=== PATIENT | female | born 1955 | race Caucasian/White ===

== ENCOUNTER 2016-12-27 20:52 | Outpatient (CLI) | payer MEDICAID | END 2016-12-27 20:53 | disposition critical access hospital (66) | LOC: EMS 20:52 | PROVIDERS: ATTEND Surgery | DX: R07.9 Chest pain, unspecified (principal); R20.0 Anesthesia of skin; R51 Headache | CPT/HCPCS: A0425; A0429 ==

== ENCOUNTER 2016-12-27 21:10 | Emergency (ER) | payer MEDICAID ==
[2016-12-28] MEDS ORDERED: HYDROcod/ACET 5/325 Prepack 6 PO STA (01:57)
[2016-12-28] MEDS ORDERED: HYDROcod/ACET 5/325 Prepack 6 PO ONE (02:00)
== END 2016-12-28 02:33 | disposition home or self-care (01) ==
DX: R07.89 Other chest pain (principal); H92.01 Otalgia, right ear; I51.7 Cardiomegaly; I10 Essential (primary) hypertension; J45.909 Unspecified asthma, uncomplicated; J44.9 Chronic obstructive pulmonary disease, unspecified; Z86.73 Personal history of transient ischemic attack (TIA), and cerebral infarction without residual deficits; G62.9 Polyneuropathy, unspecified

== ENCOUNTER 2017-06-20 11:17 | Outpatient (CLI) | payer MEDICAID | END 2017-06-20 11:18 | disposition critical access hospital (66) | LOC: EMS 11:17 | PROVIDERS: ATTEND Surgery | DX: S11.93XA Puncture wound without foreign body of unspecified part of neck, initial encounter (principal); S11.91XA Laceration without foreign body of unspecified part of neck, initial encounter; W26.0XXA Contact with knife, initial encounter; Y92.039 Unspecified place in apartment as the place of occurrence of the external cause | CPT/HCPCS: A0425; A0427 ==

== ENCOUNTER 2017-06-20 11:35 | Observation (INO) | payer MEDICAID ==
[2017-06-20] MEDS ORDERED: ETOMIDATE 40 MG/20 ML VIAL IVP ONE (11:53)
[2017-06-20] MEDS ORDERED: SUCCINYLCHOLINE 200 MG/10 ML VIAL ONE (11:54)
[2017-06-20] MEDS ORDERED: PROPOFOL 200 MG/20 ML VIAL IVP ONE (11:54)
[2017-06-20] MEDS ORDERED: IOPAMIDOL-300 100 ML VIAL ONE (12:02)
[2017-06-20] MEDS ORDERED: IOPAMIDOL-300 100 ML VIAL IVP ONE (12:20)
--- NOTE | 2017-06-20 12:46 | XRAY Preliminary Report ---
Exam: XR CHEST 1 VIEW IMPRESSION: 1. Low lung volumes with basilar opacities that could reflect atelectasis or aspiration. 2. No evidence for pneumothorax. 3. Heart size and mediastinum appear normal. 4. Lucency seen at the right lateral neck not well-defined on plain radiograph. CT of the neck could be obtained for further evaluation. [facility] SITE ID: [id number]
--- NOTE | 2017-06-20 12:49 | XRAY Report ---
EXAM: CHEST RADIOGRAPHY EXAM DATE: 06/20/2017 12:19 PM. CLINICAL HISTORY: Need to include neck. COMPARISON: None. TECHNIQUE: 1 view. FINDINGS: Lungs/Pleura: Lung volumes are low. Low lung prominent opacities could reflect atelectasis or aspirat ion. No evidence for pneumothorax. Mediastinum: Heart size and mediastinum appear unremarkable. Other: Lucency seen at the right neck. IMPRESSION: 1. Low lung volumes with basilar opacities that could reflect atelectasis or aspiration. 2. No evidence for pneumothorax. 3. Heart size and mediastinum appear normal. 4. Lucency seen at the right lateral neck not well-defined on plain radiograph. CT of the neck could be obtained for further evaluation. [facility] Referring Provider Line: [phone] SITE ID: [id number]
[2017-06-20] MEDS ORDERED: BUPIVACAINE 0.5% PF 30 ML VIAL SUBQ STA (12:54)
[2017-06-20] MEDS ORDERED: BUPIVACAINE 0.5% PF 30 ML VIAL SUBQ SCH (13:00)
[2017-06-20 13:05] LABS: BASOPHILS # (AUTO) 0.1 10^3/uL (0.0-0.1); BASOPHILS % (AUTO) 0.7 %; EOSINOPHILS % (AUTO) 0.2 %; LYMPHOCYTES # (AUTO) 2.8 10^3/uL (1.5-3.5); LYMPHOCYTES % (AUTO) 22.1 %; MEAN CORPUSCULAR HGB CONC 33.1 g/dL (32.0-36.0); MEAN CORPUSCULAR VOLUME 87.6 fL (81.0-99.0); MEAN PLATELET VOLUME 7.4 fL (7.9-10.8); MONOCYTES % (AUTO) 7.7 %; NEUTROPHILS # (AUTO) 8.9 10^3/uL (1.5-6.6); NEUTROPHILS % (AUTO) 69.3 %; PLT - PLATELET COUNT 267 10^3/uL (130-450); RED BLOOD COUNT 5.51 10^6/uL (4.20-5.40); RED CELL DISTRIBUTION WIDTH 15.6 % (12.0-15.0); WHITE BLOOD COUNT 12.9 x10^3/uL (4.8-10.8)
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
[2017-06-20] MEDS ORDERED: TETANUS/DIPHTHERIA/PERTUSSIS 0.5 ML SYRINGE IM ONE (14:29)
[2017-06-20 14:32] LABS: BILIRUBIN,URINE NEGATIVE (NEGATIVE); CLARITY,URINE CLEAR (CLEAR); GLUCOSE, URINE (UA) NEGATIVE (NEGATIVE); KETONES,URINE (UA) TRACE mg/dL (NEGATIVE); LEUKOCYTE ESTERASE, URINE NEGATIVE (NEGATIVE); NITRITE,URINE NEGATIVE (NEGATIVE); OCCULT BLOOD,URINE NEGATIVE (NEGATIVE); PROTEIN,URINE NEGATIVE (NEGATIVE); UROBILINOGEN,URINE 0.2 (NORMAL) E.U./dL (NORMAL)
[2017-06-20 14:42] LABS: INR 1.1 (0.8-1.2); PT - PROTHROMBIN TIME 12.9 secs (9.9-12.6)
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
[2017-06-20 14:53] LABS: ALBUMIN/GLOBULIN RATIO 1.3 (1.0-2.2); ALKALINE PHOSPHATASE 67 IU/L (42-121); ALT ALANINE AMINOTRANSFERASE 15 IU/L (10-60); AST ASPARTATE AMINOTRANSFERASE 18 IU/L (10-42); BILIRUBIN,TOTAL 0.7 mg/dL (0.2-1.0); BUN - BLOOD UREA NITROGEN 9 mg/dL (6-20); CALCIUM 8.9 mg/dL (8.5-10.3); CARBON DIOXIDE - CO2 23 mmol/L (21-32); CHLORIDE 104 mmol/L (101-111); CREATININE 0.9 mg/dL (0.4-1.0); GFR - MDRD 63 (>89); GLUCOSE 101 mg/dL (70-100); LIPASE 30 U/L (22-51); SALICYLATE < 6.0 mg/dL; SODIUM 139 mmol/L (135-145); TOTAL PROTEIN 7.2 g/dL (6.7-8.2)
[2017-06-20 14:55] LABS: ACETAMINOPHEN < 10 ug/mL (10-30)
[2017-06-20] MEDS ORDERED: ONDANSETRON ODT 4 MG TABLET TL PRN (15:20)
[2017-06-20] MEDS ORDERED: SODIUM CHLORIDE FLUSH 0.9% 10 ML SYRINGE IVP PRN (15:20)
[2017-06-20] MEDS ORDERED: TEMAZEPAM 15 MG CAPSULE PO PRN (15:20)
[2017-06-20] MEDS ORDERED: HYDROmorphone 0.5 MG/0.5 ML SYRINGE IVP PRN (17:10)
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
[2017-06-20] MEDS ORDERED: HYDROmorphone 1 MG/ML SYRINGE ONE ×2 (17:36→21:53)
[2017-06-20] MEDS ORDERED: ONDANSETRON 4 MG/2 ML VIAL ONE (17:39)
[2017-06-20] MEDS: NS W/20 MEQ KCL 1,000 ML IV SCH (17:41)
[2017-06-20] MEDS: LORazepam 2 MG/ML VIAL IVP PRN ×2 (17:41→19:43)
[2017-06-20] MEDS: SODIUM CHLORIDE FLUSH 0.9% 10 ML SYRINGE IVP SCH (17:42)
[2017-06-20 18:44] LABS: MUDS CUTOFF CONCENTRATIONS CUTOFF CONC BELOW:
[2017-06-20 18:55] LABS: COCAINE SCREEN URINE NEGATIVE (NEGATIVE); METHAMPHETAMINES SCREEN, URINE NEGATIVE (NEGATIVE); OPIATE SCREEN, URINE NEGATIVE (NEGATIVE)
[2017-06-20 18:56] LABS: AMPHETAMINE SCREEN,URINE NEGATIVE (NEGATIVE); BENZODIAZEPINES SCREEN, URINE NEGATIVE (NEGATIVE); METHADONE SCREEN, URINE NEGATIVE (NEGATIVE); OXYCODONE SCREEN, URINE NEGATIVE (NEGATIVE); PROPOXYPHENE SCREEN, URINE NEGATIVE (NEGATIVE); TRICYCLIC ANTIDEPRESSANT,URINE NEGATIVE (NEGATIVE)
[2017-06-20] MEDS: HYDROcod/ACETAM 5/325 MG TABLET PO PRN (19:44)
[2017-06-21] MEDS: LORazepam 2 MG/ML VIAL IVP PRN ×5 (00:12→09:37)
[2017-06-21] MEDS ORDERED: HYDROmorphone 1 MG/ML SYRINGE ONE ×4 (00:15→06:12)
[2017-06-21] MEDS: NS W/20 MEQ KCL 1,000 ML IV SCH ×2 (01:37→09:37)
[2017-06-21] MEDS: SODIUM CHLORIDE FLUSH 0.9% 10 ML SYRINGE IVP SCH ×2 (04:18→11:31)
[2017-06-21 04:44] LABS: BASOPHILS # (AUTO) 0.1 10^3/uL (0.0-0.1); BASOPHILS % (AUTO) 0.8 %; EOSINOPHILS # (AUTO) 0.2 10^3/uL (0.0-0.7); EOSINOPHILS % (AUTO) 2.4 %; LYMPHOCYTES # (AUTO) 3.8 10^3/uL (1.5-3.5); LYMPHOCYTES % (AUTO) 37.2 %; MEAN CORPUSCULAR HEMOGLOBIN 29.3 pg (27.0-31.0); MEAN CORPUSCULAR HGB CONC 33.5 g/dL (32.0-36.0); MEAN CORPUSCULAR VOLUME 87.4 fL (81.0-99.0); MONOCYTES # (AUTO) 0.9 10^3/uL (0.0-1.0); MONOCYTES % (AUTO) 8.7 %; NEUTROPHILS # (AUTO) 5.2 10^3/uL (1.5-6.6); NEUTROPHILS % (AUTO) 50.9 %; PLT - PLATELET COUNT 235 10^3/uL (130-450); RED BLOOD COUNT 4.44 10^6/uL (4.20-5.40); RED CELL DISTRIBUTION WIDTH 15.6 % (12.0-15.0); WHITE BLOOD COUNT 10.1 x10^3/uL (4.8-10.8)
[2017-06-21 04:53] LABS: ALBUMIN 3.2 g/dL (3.2-5.5); ALBUMIN/GLOBULIN RATIO 1.1 (1.0-2.2); BILIRUBIN,TOTAL 0.9 mg/dL (0.2-1.0); CREATININE 0.8 mg/dL (0.4-1.0); MAGNESIUM 1.8 mg/dL (1.7-2.8); PHOSPHORUS 3.7 mg/dL (2.5-4.6)
[2017-06-21] MEDS: HYDROmorphone 1 MG/ML SYRINGE IVP PRN ×2 (08:54→11:33)
[2017-06-21] MEDS ORDERED: ENOXAPARIN 40 MG/0.4 ML SYRINGE SUBQ SCH (09:00)
[2017-06-21] MEDS ORDERED: POLYETHYLENE GLYCOL 3350 17 GM PACKET PO SCH (09:00)
[2017-06-21] MEDS ORDERED: FAMOTIDINE 20 MG TABLET PO SCH (09:00)
[2017-06-21] MEDS: IPRATROPIUM/ALBUTEROL 3 ML NEB INH PRN ×2 (11:25→15:16)
[2017-06-21] MEDS: HYDROcod/ACETAM 5/325 MG TABLET PO PRN (14:02)
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
--- NOTE | 2017-06-21 15:11 | Discharge Plan ---
Discharge Plan Disposition: 65 Psych Hosp/Unit DC/Xfer Condition: Good Prescriptions: Gabapentin [Neurontin] 100 mg PO DAILY #30 capsule Levothyroxine Sodium 125 mcg PO DAILY #30 tablet Salmeterol Xinafoate [Serevent Diskus] 50 mcg IH BID #5 blst.w.dev Tiotropium [place] [Spiriva Respimat] 4 gm IH DAILY #5 mist.inhal Diet: Regular Activity Restrictions: No Restrictions Shower Restrictions: No Driving Restrictions: No Weight Bearing: Full Weight Additional Instructions or Follow Up instructions: You were admitted for observation after an apparent suicide attempt. You were noted to be on several medications that may not go well together. Note: there are a few new inhalers that are used to control your lung disease. Minimal medications are recommended due to the recent events. Recommend ongoing mental health care, with medication adjustments. Please follow up with your PCP once your mental health is cared for. No Smoking: If you smoke, Please STOP! Call for help. Follow-up with: Constanza Yadav PA-C [Primary Care Provider] -
[2017-06-21 15:35] VITALS: BP 125/63
[2017-06-21] MEDS ORDERED: HYDROmorphone 2 MG TABLET PO ONE (15:56)
[2017-06-21] MEDS ORDERED: METOPROLOL TARTRATE 25 MG TABLET PO SCH ×2 (16:00→21:00)
== END 2017-06-21 16:57 ==
LOC: EDUNIT# → ED 11:35 → OBS 15:20
PROVIDERS: ADMIT Nurse Practitioner; ATTEND Nurse Practitioner
DX: S11.91XA Laceration without foreign body of unspecified part of neck, initial encounter (principal); X78.1XXA Intentional self-harm by knife, initial encounter; R40.4 Transient alteration of awareness; R44.1 Visual hallucinations; R40.2432 Glasgow coma scale score 3-8, at arrival to emergency department; E66.01 Morbid (severe) obesity due to excess calories; F43.10 Post-traumatic stress disorder, unspecified; F32.9 Major depressive disorder, single episode, unspecified; F41.9 Anxiety disorder, unspecified; F40.00 Agoraphobia, unspecified; I10 Essential (primary) hypertension; J44.9 Chronic obstructive pulmonary disease, unspecified; I20.9 Angina pectoris, unspecified; E03.9 Hypothyroidism, unspecified; K21.9 Gastro-esophageal reflux disease without esophagitis; M79.7 Fibromyalgia; M54.9 Dorsalgia, unspecified; G89.29 Other chronic pain; G62.9 Polyneuropathy, unspecified; Z86.73 Personal history of transient ischemic attack (TIA), and cerebral infarction without residual deficits; Z85.828 Personal history of other malignant neoplasm of skin; Z79.891 Long term (current) use of opiate analgesic; Z68.41 Body mass index [BMI] 40.0-44.9, adult; Z87.828 Personal history of other (healed) physical injury and trauma; Z91.81 History of falling; Z90.710 Acquired absence of both cervix and uterus; Z86.14 Personal history of Methicillin resistant Staphylococcus aureus infection
CPT/HCPCS: 12044; 36415; 70498; 71010; 80053; 80306; 80307; 80320; 80329; 81003; 83605; 83690; 83735; 83880; 84100; 84443; 85025; 85610; 85730; 87640; 93005; 94640; 94664; 96361; 96372; 96374; 96375; 96376; 99285; A9270; G0378; G0390; J1170; J1650; J2060; J7620; Q0162; Q9967; 81001; 87086; 99284

== ENCOUNTER 2017-08-16 10:05 | Outpatient (CLI) | payer MEDICAID ==
[2017-08-16 13:06] LABS: HB2 TOTAL 16.3 g/dL; HEMOGLOBIN A1C 0.6 g/dL; HEMOGLOBIN A1C % 5.5 % (4.6-6.2)
[2017-08-16 13:14] LABS: BASOPHILS % (AUTO) 0.5 %; EOSINOPHILS # (AUTO) 0.1 10^3/uL (0.0-0.7); EOSINOPHILS % (AUTO) 0.9 %; HGB - HEMOGLOBIN 15.1 g/dL (12.0-16.0); LYMPHOCYTES # (AUTO) 2.3 10^3/uL (1.5-3.5); LYMPHOCYTES % (AUTO) 25.1 %; MEAN CORPUSCULAR HEMOGLOBIN 29.3 pg (27.0-31.0); MEAN CORPUSCULAR HGB CONC 33.5 g/dL (32.0-36.0); MEAN CORPUSCULAR VOLUME 87.7 fL (81.0-99.0); MEAN PLATELET VOLUME 7.7 fL (7.9-10.8); MONOCYTES # (AUTO) 0.6 10^3/uL (0.0-1.0); MONOCYTES % (AUTO) 7.2 %; NEUTROPHILS % (AUTO) 66.3 %; PLT - PLATELET COUNT 255 10^3/uL (130-450); RED BLOOD COUNT 5.14 10^6/uL (4.20-5.40); RED CELL DISTRIBUTION WIDTH 15.6 % (12.0-15.0)
[2017-08-16 13:36] LABS: BUN - BLOOD UREA NITROGEN 10 mg/dL (6-20); CALCIUM 9.2 mg/dL (8.5-10.3); CARBON DIOXIDE - CO2 24 mmol/L (21-32); CHLORIDE 100 mmol/L (101-111); CHOL/HDL RATIO 4.1 (<4.4); CHOLESTEROL 191 mg/dL; CREATININE 0.9 mg/dL (0.4-1.0); GFR - MDRD 63 (>89); GLUCOSE 108 mg/dL (70-100); HDL CHOLESTEROL 47 mg/dL; LDL CHOLESTEROL,CALCULATED 120 mg/dL; LDL/HDL RATIO 2.6 (<4.4); SODIUM 134 mmol/L (135-145); VLDL CHOLESTEROL 24 mg/dL
== END 2017-08-16 10:06 | disposition home or self-care (01) ==
LOC: LAB.N 10:05
PROVIDERS: ATTEND Physician Assistant Medical
DX: Z00.00 Encounter for general adult medical examination without abnormal findings (principal); R45.851 Suicidal ideations; Z91.09 Other allergy status, other than to drugs and biological substances; J30.2 Other seasonal allergic rhinitis; M79.7 Fibromyalgia; R53.82 Chronic fatigue, unspecified; J44.9 Chronic obstructive pulmonary disease, unspecified; E03.9 Hypothyroidism, unspecified; F51.5 Nightmare disorder; F43.10 Post-traumatic stress disorder, unspecified; F32.9 Major depressive disorder, single episode, unspecified
CPT/HCPCS: 36415; 80048; 80061; 83036; 83721; 84443; 85025

== ENCOUNTER 2017-10-24 10:28 | Outpatient (CLI) | payer MEDICAID ==
--- NOTE | 2017-10-25 15:09 | Mammography Report ---
DIGITAL SCREENING MAMMOGRAM: 10/24/2017 CLINICAL INDICATION: A 62-year-old with family history of breast cancer, for screening. COMPARISON: 01/2013, 09/2009. TECHNIQUE: Routine CC and MLO projections were obtained of the breasts. FINDINGS: Parenchymal tissue within the breasts is predominantly fatty replaced. There are no dominant masses, suspicious microcalcifications, or secondary signs of malignancy. In comparison to the previous studies, there are no significant changes. IMPRESSION: NO MAMMOGRAPHIC EVIDENCE OF MALIGNANCY. NO SIGNIFICANT INTERVAL CHANGES. RECOMMENDATION: Screening mammography is recommended annually. BIRADS CATEGORY 1 - NEGATIVE. STANDARD QUALIFYING STATEMENTS: 1. This examination was reviewed with the aid of Computed-Aided Detection (CAD). 2. A negative or benign imaging report should not delay biopsy if clinically suspicious findings are present. Consider surgical consultation if warranted. More than 5% of cancers are not identified by imaging. 3. Dense breasts may obscure an underlying neoplasm. TD: 10/25/2017 15:09
== END 2017-10-24 10:29 | disposition home or self-care (01) ==
LOC: DI.N 10:28
PROVIDERS: ATTEND Physician Assistant Medical
DX: Z12.31 Encounter for screening mammogram for malignant neoplasm of breast (principal); Z80.3 Family history of malignant neoplasm of breast
CPT/HCPCS: 77067

== ENCOUNTER 2018-05-10 14:19 | Outpatient (CLI) | payer MEDICAID ==
[2018-05-10 19:20] LABS: BASOPHILS % (AUTO) 0.5 %; EOSINOPHILS % (AUTO) 0.4 %; HGB - HEMOGLOBIN 14.6 g/dL (12.0-16.0); LYMPHOCYTES # (AUTO) 2.2 10^3/uL (1.5-3.5); LYMPHOCYTES % (AUTO) 26.1 %; MEAN CORPUSCULAR HGB CONC 32.2 g/dL (32.0-36.0); MEAN CORPUSCULAR VOLUME 90.2 fL (81.0-99.0); MEAN PLATELET VOLUME 7.7 fL (7.9-10.8); MONOCYTES # (AUTO) 0.4 10^3/uL (0.0-1.0); MONOCYTES % (AUTO) 4.8 %; NEUTROPHILS # (AUTO) 5.8 10^3/uL (1.5-6.6); NEUTROPHILS % (AUTO) 68.2 %; PLT - PLATELET COUNT 276 10^3/uL (130-450); RED BLOOD COUNT 5.05 10^6/uL (4.20-5.40); RED CELL DISTRIBUTION WIDTH 15.1 % (12.0-15.0); WHITE BLOOD COUNT 8.5 x10^3/uL (4.8-10.8)
== END 2018-05-10 14:20 ==
LOC: LAB.N 14:19
PROVIDERS: ATTEND Physician Assistant Medical
DX: E03.9 Hypothyroidism, unspecified (principal)
CPT/HCPCS: 36415; 84443; 85025

== ENCOUNTER 2018-10-18 08:00 | Outpatient (CLI) | payer MEDICAID ==
[2018-10-18 20:34] LABS: THYROID STIMULATING HORMONE 5.97 uIU/mL (0.34-5.60)
[2018-10-18 20:36] LABS: FREE T4 (FREE THYROXINE) 0.77 ng/dL (0.58-1.64)
== END 2018-10-18 23:59 | disposition home or self-care (01) ==
LOC: LAB.N 08:00
PROVIDERS: ATTEND Physician Assistant Medical
DX: E03.9 Hypothyroidism, unspecified (principal)
CPT/HCPCS: 36415; 84439; 84443

== ENCOUNTER 2019-01-03 08:00 | Outpatient (CLI) | payer MEDICAID ==
[2019-01-03 18:38] LABS: BASOPHILS % (AUTO) 0.3 %; EOSINOPHILS # (AUTO) 0.1 10^3/uL (0.0-0.7); EOSINOPHILS % (AUTO) 1.2 %; HGB - HEMOGLOBIN 13.2 g/dL (12.0-16.0); LYMPHOCYTES # (AUTO) 4.6 10^3/uL (1.5-3.5); LYMPHOCYTES % (AUTO) 46.4 %; MEAN CORPUSCULAR HEMOGLOBIN 28.9 pg (27.0-31.0); MEAN CORPUSCULAR HGB CONC 30.9 g/dL (32.0-36.0); MEAN CORPUSCULAR VOLUME 93.6 fL (81.0-99.0); MEAN PLATELET VOLUME 8.8 fL (7.9-10.8); MONOCYTES # (AUTO) 0.8 10^3/uL (0.0-1.0); MONOCYTES % (AUTO) 8.2 %; NEUTROPHILS # (AUTO) 4.3 10^3/uL (1.5-6.6); NEUTROPHILS % (AUTO) 43.7 %; PLT - PLATELET COUNT 261 10^3/uL (130-450); RED BLOOD COUNT 4.56 10^6/uL (4.20-5.40); RED CELL DISTRIBUTION WIDTH 14.6 % (12.0-15.0); WHITE BLOOD COUNT 9.9 x10^3/uL (4.8-10.8)
[2019-01-03 18:55] LABS: ALBUMIN 3.4 g/dL (3.2-5.5); ALBUMIN/GLOBULIN RATIO 1.1 (1.0-2.2); ALKALINE PHOSPHATASE 63 IU/L (42-121); ALT ALANINE AMINOTRANSFERASE 12 IU/L (10-60); AST ASPARTATE AMINOTRANSFERASE 15 IU/L (10-42); BUN - BLOOD UREA NITROGEN 13 mg/dL (6-20); CALCIUM 8.9 mg/dL (8.5-10.3); CARBON DIOXIDE - CO2 27 mmol/L (21-32); CHLORIDE 103 mmol/L (101-111); CHOL/HDL RATIO 3.3 (<4.4); CHOLESTEROL 182 mg/dL; CREATININE 0.9 mg/dL (0.4-1.0); GFR - MDRD 63 (>89); GLUCOSE 70 mg/dL (70-100); HDL CHOLESTEROL 55 mg/dL; LDL CHOLESTEROL,CALCULATED 105 mg/dL; LDL/HDL RATIO 1.9 (<4.4); SODIUM 137 mmol/L (135-145); TOTAL PROTEIN 6.6 g/dL (6.7-8.2); VLDL CHOLESTEROL 22 mg/dL
== END 2019-01-03 23:59 | disposition home or self-care (01) ==
LOC: LAB.WCP 08:00
PROVIDERS: ATTEND Physician Assistant Medical
DX: Z00.00 Encounter for general adult medical examination without abnormal findings (principal); R53.83 Other fatigue; R41.81 Age-related cognitive decline; Z71.2 Person consulting for explanation of examination or test findings; Z76.89 Persons encountering health services in other specified circumstances; J06.9 Acute upper respiratory infection, unspecified; H66.91 Otitis media, unspecified, right ear; Z91.5 Personal history of self-harm; E27.1 Primary adrenocortical insufficiency; R42 Dizziness and giddiness; R45.851 Suicidal ideations; Z91.09 Other allergy status, other than to drugs and biological substances; J30.2 Other seasonal allergic rhinitis; M79.7 Fibromyalgia; R53.82 Chronic fatigue, unspecified; J44.9 Chronic obstructive pulmonary disease, unspecified; E03.9 Hypothyroidism, unspecified; F51.5 Nightmare disorder; F43.10 Post-traumatic stress disorder, unspecified; F32.9 Major depressive disorder, single episode, unspecified
CPT/HCPCS: 36415; 80053; 80061; 83721; 85025

== ENCOUNTER 2019-03-05 10:25 | Outpatient (CLI) | payer MEDICAID ==
--- NOTE | 2019-03-06 16:14 | XRAY Report ---
Reason: FOOT PAIN Procedure Date: 03/05/2019 Accession Number: [id number] / [id number] Procedure: XRN - Foot 3 View RT CPT Code: FULL RESULT: EXAM: RIGHT FOOT RADIOGRAPHY EXAM DATE: 03/05/2019 10:39 AM. CLINICAL HISTORY: FOOT PAIN. COMPARISON: None. TECHNIQUE: 3 views. FINDINGS: Bones: Normal. No fractures or bone lesions. Joints: Some joint space narrowing at the talonavicular joint, with some bony proliferation superiorly. There are no dislocations. Soft Tissues: No obvious soft tissue swelling. IMPRESSION: Some mild arthropathy of the talonavicular joint, but no fracture or dislocation. RADIA
== END 2019-03-05 10:26 | disposition home or self-care (01) ==
LOC: DI.N 10:25
PROVIDERS: ATTEND Physician Assistant Medical
DX: M19.071 Primary osteoarthritis, right ankle and foot (principal)

== ENCOUNTER 2019-06-18 12:48 | Emergency (ER) | payer MEDICAID ==
[2019-06-18 15:49] VITALS: BP 115/71
--- NOTE | 2019-06-18 15:53 | ED Physician Documentation ---
PD HPI URI - Stated complaint Stated Complaint: SORE THROAT/EAR PX/LINARES - Chief complaint Chief Complaint: Fever - History obtained from History obtained from: Patient - History of Present Illness Timing - onset: How many weeks ago (2) Timing duration: Weeks (2) Timing details: Gradual onset Pain level max: 5 Pain level now: 5 Associated symptoms: Fever, Chills, Ear pain, Nasal congestion, Rhinorrhea, Dry cough, Dyspnea Contributing factors: Sick contact, COPD / asthma Improves by: Rest Worsened by: Activity, Breathing Recently seen: Not recently seen Review of Systems Constitutional: reports: Fever Nose: reports: Rhinorrhea / runny nose, Congestion GI: denies: Vomiting Skin: denies: Rash PD PAST MEDICAL HISTORY - Past Medical History Cardiovascular: Hypertension, Angina Respiratory: Asthma, COPD Endocrine/Autoimmune: HyPOthyroidism GI: GERD 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, Other (status post hysterectomy) : Incontinence, Nocturia, Frequency HEENT: None Psych: Depression, Anxiety, Post traumatic stress disorder, Other (agoraphobia) Musculoskeletal: Osteoarthritis, Fibromyalgia, Osteoporosis, Osteopenia, Fatigue, Chronic back pain Derm: Other drug resistant infections - Past Surgical History Past Surgical History: Yes /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, 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 Derm: Skin cancer surgery - Present Medications Home Medications: Ambulatory Orders Medication Instructions Recorded Confirmed Metoprolol Tartrate 25 mg PO BID 12/27/16 06/20/17 Gabapentin [Neurontin] 100 mg PO DAILY #30 capsule 06/21/17 Levothyroxine Sodium 125 mcg PO DAILY #30 tablet 06/21/17 Salmeterol Xinafoate [Serevent 50 mcg IH BID #5 blst.w.dev 06/21/17 Diskus] Tiotropium [place] [Spiriva 4 gm IH DAILY #5 mist.inhal 06/21/17 Respimat] Azithromycin [Zithromax] 0 mg PO DAILY #6 tablet 06/18/19 Benzonatate [Tessalon Perle] 100 - 200 mg PO TID PRN #30 capsule 06/18/19 Cetirizine HCl/Pseudoephedrine 1 each PO BID PRN #30 tab.er.12h 06/18/19 [Zyrtec-D Tablet] Polymyxin B/Trimeth Ophth Drop 1 drops EACHEYE Q3H 7 Days #1 06/18/19 [Polytrim Ophth Drops] bottle - Allergies Allergies/Adverse Reactions: Allergies Allergy/AdvReac Type Severity Reaction Status Date / Time fluticasone AdvReac Edema(throa Verified 06/18/19 12:57 t) pregabalin [From Lyrica] AdvReac Hallucinati Verified 06/18/19 12:57 ons - Social History Does the pt smoke?: No Smoking Status: Never smoker Does the pt drink ETOH?: No Does the pt have substance abuse?: No - Immunizations Immunizations are current?: Yes Immunizations: Other immun not current - POLST Patient has POLST: No POLST Status: NO blood products due to buddhist. PD ED PE NORMAL - Vitals Vital signs reviewed: Yes - General General: Alert and oriented X 3, No acute distress, Well developed/nourished - HEENT HEENT: Other (Bilateral tympanic membranes are erythematous, dull, bulging with loss of landmarks. Bilateral conjunctivae are injected with yellow drainage. Posterior oropharynx is erythematous without tonsillar exudates.) - Neck Neck: Supple, no meningeal sign, No adenopathy - Cardiac Cardiac: RRR - Respiratory Respiratory: No respiratory distress, Clear bilaterally - Abdomen Abdomen: Soft, Non tender, Non distended - Derm Derm: Warm and dry, No rash - Neuro Neuro: Alert and oriented X 3 - Psych Psych: Normal mood Results - Vitals Vitals: Vital Signs - 24 hr 06/18/19 06/18/19 12:53 15:48 Temperature 37.4 C 37.0 C Heart Rate 94 81 Respiratory 18 22 Rate Blood Pressure 104/75 115/71 O2 Saturation 95 95 Oxygen O2 Source Room air - Labs Labs: Laboratory Tests 06/18/19 06/18/19 14:15 14:15 Influenza A (Rapid) Negative Influenza B (Rapid) Negative Group A Strep Rapid Negative PD MEDICAL DECISION MAKING - ED course Complexity details: reviewed results, considered differential, d/w patient ED course: 63-year-old female with what appears to be bilateral acute otitis media with bilateral conjunctivitis. Possible pneumonia as well. Will place on azithromycin. She is well-appearing, nontoxic. She declines a breathing treatment here. Patient counseled regarding signs and symptoms for which I believe and urgent re-evaluation would be necessary. Patient with good understanding of and agreement to plan and is comfortable going home at this time This document was made in part using voice recognition software. While efforts are made to proofread this document, sound alike and grammatical errors may occur. Departure - Departure Disposition: 01 Home, Self Care Clinical Impression: Bacterial conjunctivitis of both eyes Otitis media Qualifiers: Otitis media type: suppurative Chronicity: acute Laterality: bilateral Recurrence: non-recurrent Spontaneous tympanic membrane rupture: without sp ontaneous rupture Qualified Code(s): H66.003 - Acute suppurative otitis media without spontaneous rupture of ear drum, bilateral Upper respiratory infection Qualifiers: URI type: unspecified URI Qualified Code(s): J06.9 - Acute upper respiratory infection, unspecified Condition: Good Instructions: ED Otitis Media Acute Adult, ED Conjunctivitis Bacterial, ED Upper Resp Infec Abx Tx Follow-Up: Wolf Mayberry PA-C [Primary Care Provider] - Within 1 week Prescriptions: Azithromycin [Zithromax] 0 mg PO DAILY #6 tablet Benzonatate [Tessalon Perle] 100 - 200 mg PO TID PRN #30 capsule PRN Reason: Cough Cetirizine HCl/Pseudoephedrine [Zyrtec-D Tablet] 1 each PO BID PRN #30 tab.er.12h PRN Reason: nasal congestion Polymyxin B/Trimeth Ophth Drop [Polytrim Ophth Drops] 1 drops EACHEYE Q3H 7 Days #1 bottle Comments: Take all antibiotics until gone. Return if you worsen. Drink plenty of fluids and rest.
== END 2019-06-18 16:03 | disposition home or self-care (01) ==
LOC: ED 12:48
DX: H66.003 Acute suppurative otitis media without spontaneous rupture of ear drum, bilateral (principal); H10.33 Unspecified acute conjunctivitis, bilateral; J06.9 Acute upper respiratory infection, unspecified; J44.9 Chronic obstructive pulmonary disease, unspecified; I10 Essential (primary) hypertension
CPT/HCPCS: 87070; 87275; 87276; 87430; 99283; 99284

== ENCOUNTER 2019-06-25 13:18 | Emergency (ER) | payer MEDICAID ==
[2019-06-25] MEDS ORDERED: SODIUM CHLORIDE 0.9% 1,000 ML IV STA (14:37)
[2019-06-25 15:15] LABS: BASOPHILS % (AUTO) 0.3 %; EOSINOPHILS # (AUTO) 0.1 10^3/uL (0.0-0.7); EOSINOPHILS % (AUTO) 1.2 %; HGB - HEMOGLOBIN 12.6 g/dL (12.0-16.0); LYMPHOCYTES # (AUTO) 2.5 10^3/uL (1.5-3.5); LYMPHOCYTES % (AUTO) 25.8 %; MEAN CORPUSCULAR HEMOGLOBIN 29.4 pg (27.0-31.0); MEAN CORPUSCULAR HGB CONC 32.4 g/dL (32.0-36.0); MEAN CORPUSCULAR VOLUME 90.9 fL (81.0-99.0); MEAN PLATELET VOLUME 8.1 fL (7.9-10.8); MONOCYTES # (AUTO) 0.6 10^3/uL (0.0-1.0); MONOCYTES % (AUTO) 5.6 %; NEUTROPHILS # (AUTO) 6.4 10^3/uL (1.5-6.6); NEUTROPHILS % (AUTO) 65.7 %; PLT - PLATELET COUNT 370 10^3/uL (130-450); RED BLOOD COUNT 4.28 10^6/uL (4.20-5.40); RED CELL DISTRIBUTION WIDTH 14.3 % (12.0-15.0); WHITE BLOOD COUNT 9.8 x10^3/uL (4.8-10.8)
[2019-06-25] MEDS ORDERED: oxyCODONE 5 MG TABLET PO STA (15:29)
[2019-06-25 15:30] LABS: ALBUMIN 3.4 g/dL (3.2-5.5); ALKALINE PHOSPHATASE 116 IU/L (42-121); ALT ALANINE AMINOTRANSFERASE 16 IU/L (10-60); AST ASPARTATE AMINOTRANSFERASE 15 IU/L (10-42); BILIRUBIN,TOTAL 0.5 mg/dL (0.2-1.0); BUN - BLOOD UREA NITROGEN 12 mg/dL (6-20); CALCIUM 8.8 mg/dL (8.5-10.3); CARBON DIOXIDE - CO2 27 mmol/L (21-32); CHLORIDE 102 mmol/L (101-111); CREATININE 0.9 mg/dL (0.4-1.0); GFR - MDRD 63 (>89); GLUCOSE 89 mg/dL (70-100); LIPASE 39 U/L (22-51); SODIUM 138 mmol/L (135-145); TOTAL PROTEIN 6.9 g/dL (6.7-8.2)
--- NOTE | 2019-06-25 15:55 | CT Report ---
Reason: Head trauma, mod-severe Procedure Date: 06/25/2019 Accession Number: [id number] / [id number] Procedure: CT - HEAD WO CPT Code: Final Report FULL RESULT: EXAM: CT HEAD EXAM DATE: 06/25/2019 02:56 PM. CLINICAL HISTORY: Head trauma, mod-severe. COMPARISON: HEAD W/O 04/08/2013 4:52 PM. TECHNIQUE: Multiaxial CT images were obtained from the foramen magnum to the vertex. Reformats: Sagittal and coronal. IV contrast: None. In accordance with CT protocol optimization, one or more of the following dose reduction techniques were utilized for this exam: automated exposure control, adjustment of mA and/or KV based on patient size, or use of iterative reconstructive technique. FINDINGS: Parenchyma: Negative for acute hemorrhage. There is no midline shift or mass-effect. There is very mild nonfocal periventricular white matter disease. Extraaxial Spaces: No subdural or epidural collections identified. Ventricles: Normal in size and position. Sinuses and Orbits: There is near complete opacification of the left mastoid sinus. There is fluid in the bilateral sphenoid sinuses. No maxillary sinus fluid. Bones: No evidence of fracture or calvarial defect. Other: None. IMPRESSION: 1. Negative for an acute intracranial process by noncontrast CT. 2. Left mastoid sinus inflammatory disease. 3. Very mild white matter disease. Nonspecific and most commonly attributed to sequela of chronic microangiopathy. RADIA
--- NOTE | 2019-06-25 16:01 | CT Report ---
Reason: Neck trauma, midline tenderness Procedure Date: 06/25/2019 Accession Number: [id number] / [id number] Procedure: CT - CERVICAL SPINE WO CPT Code: Final Report FULL RESULT: EXAM: CT CERVICAL SPINE WITHOUT CONTRAST DATE: 06/25/2019 02:56 PM. HISTORY: Neck trauma, midline tenderness. COMPARISONS: CERVICAL SPINE W/O 04/08/2013 4:56 PM HEAD W/O 04/08/2013 4:52 PM. TECHNIQUE: Thin-section axial images were acquired of the cervical spine without contrast. Post-processing: Coronal and sagittal reformats. Other: None. In accordance with CT protocol optimization, one or more of the following dose reduction techniques were utilized for this exam: automated exposure control, adjustment of mA and/or KV based on patient size, or use of iterative reconstructive technique. FINDINGS: Alignment: No scoliosis or spondylolisthesis. There is reversal of normal cervical lordosis, similar to the prior exam. Bones: No fracture or bone lesion. Interspace Levels/Facets: There are mild to moderate degenerative disk changes and degenerative facet changes, similar to the prior exam. Musculature: Normal. No fatty atrophy. Other: The paravertebral and prevertebral soft tissues are unremarkable. The lung apices are clear. There is partial opacification of the bilateral mastoid air cells. IMPRESSION: 1. No fracture or other acute osseous abnormality of the cervical spine. 2. Mild to moderate multilevel degenerative changes of the cervical spine, similar to prior. RADIA
--- NOTE | 2019-06-25 16:06 | ED Physician Documentation ---
History of Present Illness - Stated complaint Stated Complaint: GLF - Chief complaint Chief Complaint: Neuro - History obtained from History obtained from: Patient, Friend - History of Present Illness Timing: Today, Last night Pain level max: 8 Pain level now: 8 - Additonal information Additional information: patient unsure if she passed out or tripped and fell last night. Currently complains of all over body pain. She has been ambulating today. Worse with movement and better with rest. 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, Other : Incontinence, Nocturia, Frequency HEENT: None Psych: Depression, Anxiety, Post traumatic stress disorder, Other Musculoskeletal: Osteoarthritis, Fibromyalgia, Osteoporosis, Osteopenia, Fatigue, Chronic back pain Derm: Other drug resistant infections Other Past Medical History: adisons - Past Surgical History 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, 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 Derm: Skin cancer surgery - Present Medications Home Medications: Ambulatory Orders Medication Instructions Recorded Confirmed Metoprolol Tartrate 25 mg PO BID 12/27/16 06/20/17 Gabapentin [Neurontin] 100 mg PO DAILY #30 capsule 06/21/17 Levothyroxine Sodium 125 mcg PO DAILY #30 tablet 06/21/17 Salmeterol Xinafoate [Serevent 50 mcg IH BID #5 blst.w.dev 06/21/17 Diskus] Tiotropium [place] [Spiriva 4 gm IH DAILY #5 mist.inhal 06/21/17 Respimat] Azithromycin [Zithromax] 0 mg PO DAILY #6 tablet 06/18/19 Benzonatate [Tessalon Perle] 100 - 200 mg PO TID PRN #30 capsule 06/18/19 Cetirizine HCl/Pseudoephedrine 1 each PO BID PRN #30 tab.er.12h 06/18/19 [Zyrtec-D Tablet] Polymyxin B/Trimeth Ophth Drop 1 drops EACHEYE Q3H 7 Days #1 06/18/19 [Polytrim Ophth Drops] bottle Oxycodone HCl/Acetaminophen 1 - 2 each PO Q6H PRN #10 tablet 06/25/19 [Percocet 5-325 mg Tablet] - Allergies Allergies/Adverse Reactions: Allergies Allergy/AdvReac Type Severity Reaction Status Date / Time fluticasone AdvReac Edema(throa Verified 06/25/19 13:24 t) pregabalin [From Lyrica] AdvReac Hallucinati Verified 06/25/19 13:24 ons - Social History Does the pt smoke?: No Smoking Status: Never smoker Does the pt drink ETOH?: No Does the pt have substance abuse?: No - Immunizations Immunizations are current?: Yes Immunizations: Other immun not current - POLST Patient has POLST: No POLST Status: NO blood products due to hinduism. PD ED PE NORMAL - Vitals Vital signs reviewed: Yes - General General: Alert and oriented X 3, Other (Morbidly obese female) - HEENT HEENT: Atraumatic, PERRL, EOMI, Ears normal, Moist mucous membranes, Pharynx benign - Neck Neck: Supple, no meningeal sign, Other (Mild posterior tenderness to palpation, midline. No step-off or deformity) - Cardiac Cardiac: RRR, Strong equal pulses - Respiratory Respiratory: No respiratory distress, Clear bilaterally - Abdomen Abdomen: Soft, Non tender, Non distended - Back Back: No spinal TTP (No midline tenderness to palpation. No crepitus. Small ecchymosis to the left midthoracic area. No tenderness here) - Derm Derm: Warm and dry - Extremities Extremities: No deformity, No tenderness to palpate, Normal ROM s pain, No edema, No calf tenderness / cord, Other (No tenderness to palpation over the bilateral lower extremities. No bony tenderness. 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, No motor deficit, No sensory deficit, Normal speech Eye Opening: Spontaneous Motor: Obeys Commands Verbal: Oriented GCS Score: 15 - Psych Psych: Normal mood, Normal affect Results - Vitals Vitals: Vital Signs - 24 hr 06/25/19 06/25/19 06/25/19 13:24 17:03 18:05 Temperature 36.8 C 36.5 C 37.1 C Heart Rate 70 62 60 Respiratory 20 20 18 Rate Blood Pressure 150/79 H 139/72 H 133/66 H O2 Saturation 98 98 96 Oxygen O2 Source Room air - EKG (time done) 1501 Rate: Rate (enter#) (59) Rhythm: NSR [place]: Normal Intervals: Normal MD QRS: Normal Ischemia: Normal ST segments Computer interpretation: Agree with computer - Labs Labs: Laboratory Tests 06/25/19 06/25/19 06/25/19 15:09 15:09 15:09 WBC 9.8 RBC 4.28 Hgb 12.6 Hct 38.9 MCV 90.9 MCH 29.4 MCHC 32.4 RDW 14.3 Plt Count 370 MPV 8.1 Neut # (Auto) 6.4 Lymph # (Auto) 2.5 [place] # (Auto) 0.6 Eos # (Auto) 0.1 Baso # (Auto) 0.0 Absolute Nucleated RBC 0.00 Nucleated RBC % 0.0 Sodium 138 Potassium 4.7 Chloride 102 Carbon Dioxide 27 Anion Gap 9.0 BUN 12 Creatinine 0.9 Estimated GFR (MDRD) 63 L Glucose 89 Calcium 8.8 Total Bilirubin 0.5 AST 15 ALT 16 Alkaline Phosphatase 116 Troponin I High Sens < 2.3 L Total Protein 6.9 Albumin 3.4 Globulin 3.5 Albumin/Globulin Ratio 1.0 Lipase 39 Urine Color Urine Clarity Urine pH Ur Specific [place] Urine Protein Urine Glucose (UA) Urine Ketones Urine Occult Blood Urine Nitrite Urine Bilirubin Urine Urobilinogen Ur Leukocyte Esterase Ur Microscopic Review Urine Culture Comments Urine Opiates Screen Ur Oxycodone Screen Urine Methadone Screen Ur Propoxyphene Screen Ur Barbiturates Screen Ur Tricyclics Screen Ur Phencyclidine Scrn Ur Amphetamine Screen U Methamphetamines Scrn U Benzodiazepines Scrn Urine Cocaine Screen U Cannabinoids Screen Ethyl Alcohol < 5.0 06/25/19 16:48 WBC RBC Hgb Hct MCV MCH MCHC RDW Plt Count MPV Neut # (Auto) Lymph # (Auto) [place] # (Auto) Eos # (Auto) Baso # (Auto) Absolute Nucleated RBC Nucleated RBC % Sodium Potassium Chloride Carbon Dioxide Anion Gap BUN Creatinine Estimated GFR (MDRD) Glucose Calcium Total Bilirubin AST ALT Alkaline Phosphatase Troponin I High Sens Total Protein Albumin Globulin Albumin/Globulin Ratio Lipase Urine Color YELLOW Urine Clarity CLEAR Urine pH 7.0 Ur Specific [place] <=1.005 Urine Protein NEGATIVE Urine Glucose (UA) NEGATIVE Urine Ketones NEGATIVE Urine Occult Blood NEGATIVE Urine Nitrite NEGATIVE Urine Bilirubin NEGATIVE Urine Urobilinogen 0.2 (NORMAL) Ur Leukocyte Esterase NEGATIVE Ur Microscopic Review NOT INDICATED Urine Culture Comments NOT INDICATED Urine Opiates Screen NEGATIVE Ur Oxycodone Screen NEGATIVE Urine Methadone Screen NEGATIVE Ur Propoxyphene Screen NEGATIVE Ur Barbiturates Screen NEGATIVE Ur Tricyclics Screen NEGATIVE Ur Phencyclidine Scrn NEGATIVE Ur Amphetamine Screen NEGATIVE U Methamphetamines Scrn NEGATIVE U Benzodiazepines Scrn NEGATIVE Urine Cocaine Screen NEGATIVE U Cannabinoids Screen NEGATIVE Ethyl Alcohol - Rads (name of study) head CT Radiology: Prelim report reviewed, EMP read contemporaneously, See rad report (No acute abnormality) cervical spine CT Radiology: Prelim report reviewed, EMP read contemporaneously, See rad report (No acute abnormality) PD MEDICAL DECISION MAKING - ED course Complexity details: reviewed results, re-evaluated patient, considered differential, d/w patient ED course: Patient presents after a fall. She is well-appearing, nontoxic. Afebrile. Feels much better after a dose of oxycodone. Ambulating well in the emergency department. No evidence of extremity fracture. Abdomen is soft, nontender nondistended. Lungs are clear to auscultation bilaterally. Negative C-spine CT and head CT. No acute findings on EKG. Patient and family counseled regarding signs and symptoms for which I believe and urgent re-evaluation would be necessary. Patient with good understanding of and agreement to plan and is comfortable going home at this time This document was made in part using voice recognition software. While efforts are made to proofread this document, sound alike and grammatical errors may occur. Departure - Departure Disposition: 01 Home, Self Care Clinical Impression: Fall Qualifiers: Encounter type: initial encounter Qualified Code(s): W19.XXXA - Unspecified fall, initial encounter Syncope Qualifiers: Syncope type: unspecified Qualified Code(s): R55 - Syncope and collapse Head injury Qualifiers: Encounter type: initial encounter Qualified Code(s): S09.90XA - Unspecified injury of head, initial encounter Condition: Good Instructions: ED Head Injury Closed, ED Fainting Unkn Cause Follow-Up: Wolf Mayberry PA-C [Primary Care Provider] - Within 1 week Prescriptions: Oxycodone HCl/Acetaminophen [Percocet 5-325 mg Tablet] 1 - 2 each PO Q6H PRN #10 tablet PRN Reason: pain Comments: He is a Percocet as needed for pain. Follow-up with your doctor for further care. Your tests are normal today. You should also follow-up with your doctor for further evaluation of your heart as it appears that you passed out last night. Discharge Date/Time: 06/25/19 18:21
[2019-06-25 17:14] LABS: MUDS CUTOFF CONCENTRATIONS CUTOFF CONC BELOW:
[2019-06-25 17:34] LABS: BILIRUBIN,URINE NEGATIVE (NEGATIVE); GLUCOSE, URINE (UA) NEGATIVE (NEGATIVE); KETONES,URINE (UA) NEGATIVE (NEGATIVE); LEUKOCYTE ESTERASE, URINE NEGATIVE (NEGATIVE); NITRITE,URINE NEGATIVE (NEGATIVE); OCCULT BLOOD,URINE NEGATIVE (NEGATIVE); PROTEIN,URINE NEGATIVE (NEGATIVE); UROBILINOGEN,URINE 0.2 (NORMAL) E.U./dL (NORMAL)
[2019-06-25 17:47] LABS: CLARITY,URINE CLEAR (CLEAR)
[2019-06-25 17:48] LABS: AMPHETAMINE SCREEN,URINE NEGATIVE (NEGATIVE); BENZODIAZEPINES SCREEN, URINE NEGATIVE (NEGATIVE); COCAINE SCREEN URINE NEGATIVE (NEGATIVE); METHADONE SCREEN, URINE NEGATIVE (NEGATIVE); METHAMPHETAMINES SCREEN, URINE NEGATIVE (NEGATIVE); OPIATE SCREEN, URINE NEGATIVE (NEGATIVE); OXYCODONE SCREEN, URINE NEGATIVE (NEGATIVE); PROPOXYPHENE SCREEN, URINE NEGATIVE (NEGATIVE); TRICYCLIC ANTIDEPRESSANT,URINE NEGATIVE (NEGATIVE)
[2019-06-25 18:06] VITALS: BP 133/66
== END 2019-06-25 18:21 | disposition home or self-care (01) ==
LOC: ED 13:18
DX: R55 Syncope and collapse (principal); S09.90XA Unspecified injury of head, initial encounter; W19.XXXA Unspecified fall, initial encounter; I10 Essential (primary) hypertension; E03.9 Hypothyroidism, unspecified
CPT/HCPCS: 36415; 70450; 72125; 80053; 80306; 80320; 81003; 83690; 84484; 85025; 93005; 96360; 96361; 99284; 99285; A9270; 81001; 87086

== ENCOUNTER 2019-06-30 03:08 | Outpatient (CLI) | payer SELFPAY | END 2019-06-30 03:09 | disposition EMS.NT | LOC: EMS 03:08 | PROVIDERS: ATTEND Surgery | DX: R09.89 Other specified symptoms and signs involving the circulatory and respiratory systems (principal) ==

== ENCOUNTER 2019-07-23 10:49 | Outpatient (CLI) | payer MEDICAID ==
--- NOTE | 2019-07-24 13:28 | Ultrasound Report ---
Reason: SYNCOPE Procedure Date: 07/23/2019 Accession Number: [id number] / [id number] Procedure: US - Carotid Doppler Complete CPT Code: Final Report FULL RESULT: EXAM: BILATERAL CAROTID AND VERTEBRAL ARTERY DUPLEX DOPPLER ULTRASOUND: EXAM DATE: 07/23/2019 12:02 PM CLINICAL HISTORY: Syncope. COMPARISON: None. TECHNIQUE: Grayscale imaging, color Doppler, and duplex spectral Doppler were used to evaluate the carotid and vertebral arteries bilaterally. Static images were obtained. FINDINGS: No significant plaque is identified in the right or left common or internal carotid arteries. Normal antegrade flow is present in bilateral vertebral arteries. VELOCITIES (cm/sec): Right CCA Mid: PSV 85 cm/sec CCA Dist: PSV 63 cm/sec ICA Prox: PSV 74 cm/sec, EDV 17 cm/sec ICA Mid: PSV 55 cm/sec, EDV 18 cm/sec ICA Dist: PSV 104 cm/sec, EDV 31 cm/sec ECA: PSV 75 cm/sec Vert: PSV 47 cm/sec ICA/CCA: 1.22 Left CCA Mid: PSV 76 cm/sec CCA Dist: PSV 80 cm/sec ICA Prox: PSV 76 cm/sec, EDV 23 cm/sec ICA Mid: PSV 78 cm/sec, EDV 27 cm/sec ICA Dist: PSV 88 cm/sec, EDV 30 cm/sec ECA: PSV 74 cm/sec Vert: PSV 53 cm/sec ICA/CCA: 0.92 IMPRESSION: 1. No significant bilateral carotid artery plaquing. 2. In the right carotid artery there are no elevated carotid artery velocities to suggest hemodynamically significant stenosis. 3. In the left carotid artery there are no elevated carotid artery velocities to suggest hemodynamically significant stenosis. 4. Normal antegrade flow is present in bilateral vertebral arteries. General Recommendations: Stenosis =50% ICA - Follow-up ultrasound 6-12 months Stenosis <50% ICA - High Risk Patient with plaque - Follow-up ultrasound 1-2 years Normal Study but High Risk Patient - Follow-up ultrasound 3-5 years Management recommendations and diagnostic criteria are based on current IAC endorsed standards in Carotid Artery Stenosis: Grayscale and Doppler Ultrasound Diagnosis. Validated velocity measurements with angiographic measurements and velocity criteria are extrapolated from diameter data as defined by the Society of Radiologists in Ultrasound Consensus Conference Radiology 2003; 229;340-346. RADIA
== END 2019-07-23 10:50 | disposition home or self-care (01) ==
LOC: DI 10:49
PROVIDERS: ATTEND Family Medicine
DX: R55 Syncope and collapse (principal)
CPT/HCPCS: 93880

== ENCOUNTER 2019-08-17 13:18 | Outpatient (CLI) | payer MEDICARE, MEDICAID ==
--- NOTE | 2019-08-17 16:00 | XRAY Report ---
Reason: NECK AND BACK Procedure Date: 08/17/2019 Accession Number: [id number] / [id number] Procedure: XRN - Cervical Spine 2 View CPT Code: Final Report FULL RESULT: EXAM: CERVICAL SPINE RADIOGRAPHY EXAM DATE: 08/17/2019 01:51 PM. CLINICAL HISTORY: NECK AND BACK. COMPARISONS: None. TECHNIQUE: 3 views. FINDINGS: Alignment: Grade 1 anterolisthesis at C2-C3 by approximately 1 mm and C3-C4 by approximately 2 mm. Bones: The cervical vertebral bodies and posterior elements are well visualized from the skull base through C7-T1. Anterior and posterior osteophytes at C4-C5 and C5-C6. Disks: Moderate to severe C4-C5 and mild C5-C6 and C6-C7 disk space narrowing. Facets: Multilevel facet arthropathy. Soft Tissues: Normal. No prevertebral soft tissue swelling. The visualized lung apices are clear. IMPRESSION: 1. Grade 1 anterolisthesis at C2-C3 and C3-C4. 2. Disk space narrowing and osteophytosis at C4-C5 and C5-C6. C6-C7 disk space narrowing. 3. Multilevel facet arthropathy. RADIA
--- NOTE | 2019-08-17 16:19 | XRAY Report ---
Reason: NECK AND BACK Procedure Date: 08/17/2019 Accession Number: [id number] / [id number] Procedure: XRN - Lumbar Spine Complete CPT Code: Final Report FULL RESULT: EXAM: LUMBOSACRAL SPINE RADIOGRAPHY EXAM DATE: 08/17/2019 02:06 PM. CLINICAL HISTORY: Back pain. COMPARISONS: THORACIC SPINE 3 VIEW 08/17/2019 1:55 PM. TECHNIQUE: 5 views. FINDINGS: Alignment: Mild rotary levoconvex scoliosis. Bones: Five [id number] lumbar vertebral bodies are present. Small anterolateral osteophytes at the thoracolumbar spine. No acute fracture or bone lesions. Disks: Mild L5-S1, moderate L1-L2, moderate T12-L1 disk space narrowing. Facets: No degenerative changes. Sacroiliac Joints: Unremarkable. Soft Tissues: Normal. The visualized bowel gas pattern is normal. IMPRESSION: 1. Mild rotatory levoconvex scoliosis. 2. Osteophytosis and disk space narrowing at the thoracolumbar spine. RADIA
--- NOTE | 2019-08-18 05:16 | XRAY Report ---
Reason: NECK AND BACK PAIN Procedure Date: 08/17/2019 Accession Number: [id number] / [id number] Procedure: XRN - Thoracic Spine 3 View CPT Code: Final Report FULL RESULT: EXAM: THORACIC SPINE RADIOGRAPHY EXAM DATE: 08/17/2019 01:55 PM. CLINICAL HISTORY: NECK AND BACK PAIN. COMPARISON: None. TECHNIQUE: 2 views. FINDINGS: Alignment: Limited evaluation of the upper and lower thoracic spine on the lateral radiographs. The mid thoracic spine alignment is maintained. There is no scoliosis. A compression deformity with retrolisthesis is suggested at C3. Bones: Suggestion of C3 compression deformity. No definite additional fractures within the limitations of the exam as described above. Disks: Normal. Disk heights are maintained. Soft Tissues: Normal. The visualized lungs and cardiomediastinal silhouette are normal. IMPRESSION: 1. Limited evaluation of the thoracic spine alignment. 2. Suggestion of C3 compression deformity with retrolisthesis at C3-C4. RADIA
== END 2019-08-17 13:19 | disposition home or self-care (01) ==
LOC: DI.N 13:18
PROVIDERS: ATTEND Family Medicine
DX: M50.321 Other cervical disc degeneration at C4-C5 level (principal); M47.812 Spondylosis without myelopathy or radiculopathy, cervical region; M43.12 Spondylolisthesis, cervical region; M51.36 Other intervertebral disc degeneration, lumbar region; M51.37 Other intervertebral disc degeneration, lumbosacral region; M41.9 Scoliosis, unspecified
CPT/HCPCS: 72040; 72072; 72110

== ENCOUNTER 2019-11-06 11:22 | Outpatient (CLI) | payer MEDICARE, MEDICAID ==
--- NOTE | 2019-11-07 04:14 | XRAY Report ---
Reason: RIGHT SHOULDER PAIN Procedure Date: 11/06/2019 Accession Number: [id number] / [id number] Procedure: WCP - Shoulder 3 View RT CPT Code: Final Report FULL RESULT: EXAM: RIGHT SHOULDER RADIOGRAPHY EXAM DATE: 11/06/2019 11:22 AM. CLINICAL HISTORY: RIGHT SHOULDER PAIN. COMPARISON: None. TECHNIQUE: 3 views. FINDINGS: Bones: Normal. No fracture or bone lesion. Joints: The glenohumeral and acromioclavicular joints are normal. Soft tissues: The visualized hemithorax is unremarkable. No soft tissue swelling. IMPRESSION: Normal shoulder radiography. RADIA
== END 2019-11-06 23:59 | disposition home or self-care (01) ==
LOC: DI.WCP 11:22
PROVIDERS: ATTEND Family Medicine
DX: M25.511 Pain in right shoulder (principal)

== ENCOUNTER 2020-01-08 08:00 | Outpatient (CLI) | payer MEDICARE, MEDICAID ==
[2020-01-08 18:47] LABS: HGB - HEMOGLOBIN 12.3 g/dL (12.0-16.0); MEAN CORPUSCULAR HEMOGLOBIN 29.6 pg (27.0-31.0); MEAN CORPUSCULAR HGB CONC 31.2 g/dL (32.0-36.0); MEAN CORPUSCULAR VOLUME 94.7 fL (81.0-99.0); MEAN PLATELET VOLUME 8.8 fL (7.9-10.8); RED BLOOD COUNT 4.16 10^6/uL (4.20-5.40); RED CELL DISTRIBUTION WIDTH 15.4 % (12.0-15.0); WHITE BLOOD COUNT 10.5 x10^3/uL (4.8-10.8)
[2020-01-08 19:22] LABS: CALCIUM 8.5 mg/dL (8.5-10.3); CREATININE 1.2 mg/dL (0.4-1.0)
== END 2020-01-08 23:59 | disposition home or self-care (01) ==
LOC: LAB.WCP 08:00
PROVIDERS: ATTEND Family Medicine
DX: R06.09 Other forms of dyspnea (principal)
CPT/HCPCS: 36415; 80048; 83880; 85027

== ENCOUNTER 2020-01-08 11:28 | Outpatient (CLI) | payer MEDICARE, MEDICAID ==
--- NOTE | 2020-01-08 12:36 | XRAY Report ---
Reason: DYSPNEA ON EXERTION Procedure Date: 01/08/2020 Accession Number: [id number] / [id number] Procedure: WCP - Chest 2 View X-Ray CPT Code: 95994 Final Report FULL RESULT: PROCEDURE: Chest 2 View X-Ray INDICATIONS: DYSPNEA ON EXERTION TECHNIQUE: 2 view(s) of the chest. COMPARISON: None. FINDINGS: Surgical changes and devices: None. Lungs and pleura: No pleural effusions or pneumothorax. Lungs are clear. Mediastinum: Mediastinal contours are normal. Heart size is normal. Bones and chest wall: No suspicious bony abnormalities. Soft tissues appear unremarkable. IMPRESSION: No acute cardiopulmonary pathology. Reviewed by: Fransico Ribeiro MD on 01/08/2020 12:35 PM PDT Approved by: Fransico Ribeiro MD on 01/08/2020 12:35 PM PDT Station ID: [id number]
== END 2020-01-08 23:59 | disposition home or self-care (01) ==
LOC: DI.WCP 11:28
PROVIDERS: ATTEND Family Medicine
DX: R06.09 Other forms of dyspnea (principal)
CPT/HCPCS: 36415; 71046; 80048; 83880; 85027

== ENCOUNTER 2020-01-16 09:54 | Outpatient (CLI) | payer MEDICARE, MEDICAID ==
[2020-01-16 11:45] LABS: BASOPHILS % (AUTO) 0.3 %; EOSINOPHILS # (AUTO) 0.2 10^3/uL (0.0-0.7); EOSINOPHILS % (AUTO) 2.5 %; LYMPHOCYTES # (AUTO) 2.7 10^3/uL (1.5-3.5); LYMPHOCYTES % (AUTO) 34.3 %; MEAN CORPUSCULAR HEMOGLOBIN 28.6 pg (27.0-31.0); MEAN CORPUSCULAR HGB CONC 31.1 g/dL (32.0-36.0); MEAN CORPUSCULAR VOLUME 91.9 fL (81.0-99.0); MEAN PLATELET VOLUME 8.9 fL (7.9-10.8); MONOCYTES # (AUTO) 0.6 10^3/uL (0.0-1.0); MONOCYTES % (AUTO) 7.6 %; NEUTROPHILS # (AUTO) 4.3 10^3/uL (1.5-6.6); NEUTROPHILS % (AUTO) 54.9 %; PLT - PLATELET COUNT 280 10^3/uL (130-450); RED BLOOD COUNT 4.55 10^6/uL (4.20-5.40); RED CELL DISTRIBUTION WIDTH 15.2 % (12.0-15.0); WHITE BLOOD COUNT 7.9 x10^3/uL (4.8-10.8)
[2020-01-16 12:16] LABS: ALBUMIN 3.7 g/dL (3.2-5.5); ALBUMIN/GLOBULIN RATIO 1.2 (1.0-2.2); CALCIUM 8.9 mg/dL (8.5-10.3); TOTAL PROTEIN 6.9 g/dL (6.7-8.2)
== END 2020-01-16 23:59 | disposition home or self-care (01) ==
LOC: LAB.WCP 09:54
PROVIDERS: ATTEND Family Medicine
DX: R10.11 Right upper quadrant pain (principal)
CPT/HCPCS: 36415; 80053; 82150; 83690; 85025

== ENCOUNTER 2020-01-18 09:54 | Outpatient (CLI) | payer MEDICARE, MEDICAID ==
[2020-01-19 13:18] LABS: H. PYLORIS ANTIGEN STL NEGATIVE (Negative)
== END 2020-01-18 23:59 | disposition home or self-care (01) ==
LOC: LAB.WCP 09:54
PROVIDERS: ATTEND Family Medicine
DX: R10.11 Right upper quadrant pain (principal)
CPT/HCPCS: 87338; 87493

== ENCOUNTER 2020-01-21 13:01 | Outpatient (CLI) | payer MEDICARE, MEDICAID ==
--- NOTE | 2020-01-22 14:56 | Mammography Report ---
BILATERAL DIGITAL SCREENING MAMMOGRAM 3D/2D: 01/21/2020 CLINICAL: Routine screening. Comparison is made to exams dated: 10/24/2017 mammogram - [facility], 11/16/2013 [facility] [place], and 02/13/2013 mammogram - [facility]. The tissue of both breasts is predominantly fatty. No significant masses, calcifications, or other findings are seen in either breast. There has been no significant interval change. IMPRESSION: NEGATIVE There is no mammographic evidence of malignancy. A 1 year screening mammogram is recommended. This exam was interpreted at Station ID: [id number]. NOTE: For mammograms, a report in lay terms will be sent to the patient. Approximately 15% of breast malignancies will not be visualized mammographically. In the management of a palpable breast mass, a negative mammogram must not discourage biopsy of a clinically suspicious lesion. Electronically Signed By: Eli gentile/neelam:01/22/2020 08:47:06 ACR BI-RADS Category 1: Negative 3341F PARENCHYMAL PATTERN: (F) - The breast(s) demonstrate(s) diffuse fatty replacement. BI-RADS CATEGORY: (1) - 1 RECOMMENDATION: (ANNUAL) - Recommend routine annual screening mammography. [id number] 1 year screening LATERALITY: (B)
== END 2020-01-21 13:02 | disposition home or self-care (01) ==
LOC: DI 13:01
PROVIDERS: ATTEND Obstetrics & Gynecology
DX: Z12.31 Encounter for screening mammogram for malignant neoplasm of breast (principal)
CPT/HCPCS: 77063; 77067

== ENCOUNTER 2020-02-06 10:39 | Outpatient (CLI) | payer MEDICARE, MEDICAID | END 2020-02-06 10:40 | disposition home or self-care (01) | LOC: LAB.WCP 10:39 | PROVIDERS: ATTEND Family Medicine | DX: E03.9 Hypothyroidism, unspecified (principal) | CPT/HCPCS: 36415; 84443 ==

== ENCOUNTER 2020-02-15 18:29 | Outpatient (CLI) | payer MEDICARE, MEDICAID ==
--- NOTE | 2020-02-15 19:56 | Ultrasound Report ---
PROCEDURE: Abdomen Limited INDICATIONS: RUQ ABD PX TECHNIQUE: Real-time focused scanning was performed of the abdomen, with image documentation. COMPARISON: None FINDINGS: Liver is mildly enlarged measuring 17.6 cm, and demonstrates diffusely increased echogenic ity. Cholelithiasis is present. No evidence of gallbladder wall thickening. No biliary ductal dilatat ion. Pancreas is not well seen. Right kidney is within normal limits. IMPRESSION: 1. Cholelithiasis without evidence of cholecystitis. 2. Hepatic steatosis. Reviewed by: Jordan Ferrer MD on 02/15/2020 7:55 PM PDT Approved by: Jordan Ferrer MD on 02/15/2020 7:55 PM PDT Station ID: [id number]
== END 2020-02-15 18:30 | disposition home or self-care (01) ==
LOC: DI 18:29
PROVIDERS: ATTEND Family Medicine
DX: K80.20 Calculus of gallbladder without cholecystitis without obstruction (principal); K76.0 Fatty (change of) liver, not elsewhere classified
CPT/HCPCS: 76705

== ENCOUNTER 2020-03-06 09:57 | Outpatient (CLI) | payer MEDICARE, MEDICAID | END 2020-03-06 09:58 | disposition home or self-care (01) | LOC: LAB 09:57 | PROVIDERS: ATTEND Surgery | DX: Z01.818 Encounter for other preprocedural examination (principal); K80.20 Calculus of gallbladder without cholecystitis without obstruction; Z20.828 Contact with and (suspected) exposure to other viral communicable diseases ==

== ENCOUNTER 2020-03-10 08:07 | Day surgery (SDC) | payer MEDICARE, MEDICAID ==
[2020-03-10] MEDS ORDERED: DEXAMETHASONE 4 MG/ML VIAL IVP ONE (08:08)
[2020-03-10] MEDS ORDERED: PROPOFOL 200 MG/20 ML VIAL IVP ONE (08:08)
[2020-03-10] MEDS ORDERED: ACETAMINOPHEN 1,000 MG/100 ML 100 ML IV ONE (08:08)
[2020-03-10] MEDS ORDERED: SUGAMMADEX 200 MG/2 ML VIAL IVP ONE (08:08)
[2020-03-10] MEDS ORDERED: MIDAZOLAM 2 MG/2 ML VIAL IVP ONE (08:08)
[2020-03-10] MEDS ORDERED: fentaNYL 100 MCG/2 ML VIAL IVP ONE (08:08)
[2020-03-10] MEDS ORDERED: ROCURONIUM 50 MG/5 ML VIAL IVP ONE (08:08)
[2020-03-10] MEDS ORDERED: ONDANSETRON 4 MG/2 ML VIAL IVP ONE (08:08)
[2020-03-10] MEDS ORDERED: LIDOCAINE-MPF 2% 5 ML VIAL IM ONE (08:08)
[2020-03-10] MEDS ORDERED: LACTATED RINGERS 1,000 ML IV ONE ×2 (08:15→12:40)
[2020-03-10] MEDS ORDERED: CEFAZOLIN SODIUM IN 0.9 % NACL 2 GM/100 ML BAG IV ONE (08:17)
[2020-03-10] MEDS ORDERED: BUPIVACAINE 0.5% PF 30 ML VIAL ONE ×2 (09:59→11:23)
[2020-03-10] MEDS ORDERED: LIDOCAINE 1%-EPI 1:100000 20 ML MDV ONE (09:59)
[2020-03-10] MEDS ORDERED: fentaNYL 100 MCG/2 ML VIAL IVP PRN (10:38)
[2020-03-10] MEDS ORDERED: MORPHINE 2 MG/ML CARPUJECT IVP PRN (10:38)
[2020-03-10] MEDS ORDERED: HYDROmorphone 0.5 MG/0.5 ML SYRINGE IVP PRN (10:38)
[2020-03-10] MEDS ORDERED: ONDANSETRON 4 MG/2 ML VIAL IVP PRN ×2 (10:38→12:28)
[2020-03-10] MEDS ORDERED: NALOXONE 0.4 MG/ML VIAL IVP PRN (10:38)
[2020-03-10] MEDS ORDERED: ePHEDrine 50 MG/ML VIAL IVP PRN (10:38)
[2020-03-10] MEDS ORDERED: ATROPINE ABBOJECT 1 MG/10 ML SYRINGE IVP PRN (10:38)
--- NOTE | 2020-03-10 10:41 | ANESTHESIA ---
Pre-Anesthesia VS, & Labs - Diagnosis cholelithiasis - Procedure Laparoscopic cholecystectomy Vital Signs: Temp Pulse Resp BP Pulse Ox 36.8 C 73 20 148/63 H 95 03/10/20 08:28 03/10/20 08:28 03/10/20 08:28 03/10/20 08:28 03/10/20 08:28 Height 5 ft 3 in Weight (kg) 128.5 kg Body Mass Index 47.8 - NPO >8 hours - Is Patient ?: No Home Medications and Allergies Home Medications: Ambulatory Orders Albuterol Sulfate [Proair Hfa Inhaler] 1 - 2 puffs INH Q4H PRN 03/06/20 Fluticasone 44 Mcg [Flovent] 1 puffs INH BID 03/06/20 Gabapentin [Neurontin] 600 mg PO TID 03/06/20 Hydrocortisone 10 mg PO BID 03/06/20 Ipratropium [Atrovent] 1 puffs INH Q6H 03/06/20 Lamotrigine [Lamotrigine ER] 200 mg PO DAILY 03/06/20 Meloxicam 15 mg PO DAILY 03/06/20 Pantoprazole [Protonix] 40 mg PO DAILY 03/06/20 Prazosin HCl 5 mg PO DAILY 03/06/20 Risperidone [Risperdal] 0.5 mg PO DAILY 03/06/20 Sucralfate 1 gm PO ACHS 03/06/20 Trazodone HCl 100 mg PO DAILY 03/06/20 Venlafaxine HCl [Effexor Xr] 150 mg PO DAILY 03/06/20 Verapamil HCl [Verapamil ER] 120 mg PO DAILY 03/06/20 Metoprolol Tartrate 25 mg PO BID 12/27/16 Albuterol Sulfate [Proair Hfa Inhaler] 1 - 2 puffs INH Q4H PRN 03/06/20 Fluticasone 44 Mcg [Flovent] 1 puffs INH BID 03/06/20 Gabapentin [Neurontin] 600 mg PO TID 03/06/20 Hydrocortisone 10 mg PO BID 03/06/20 Ipratropium [Atrovent] 1 puffs INH Q6H 03/06/20 Lamotrigine [Lamotrigine ER] 200 mg PO DAILY 03/06/20 Meloxicam 15 mg PO DAILY 03/06/20 Pantoprazole [Protonix] 40 mg PO DAILY 03/06/20 Prazosin HCl 5 mg PO DAILY 03/06/20 Risperidone [Risperdal] 0.5 mg PO DAILY 03/06/20 Sucralfate 1 gm PO ACHS 03/06/20 Trazodone HCl 100 mg PO DAILY 03/06/20 Venlafaxine HCl [Effexor Xr] 150 mg PO DAILY 03/06/20 Verapamil HCl [Verapamil ER] 120 mg PO DAILY 03/06/20 Allergies/Adverse Reactions: Allergies Allergy/AdvReac Type Severity Reaction Status Date / Time pregabalin [From Lyrica] AdvReac Hallucinati Verified 06/25/19 13:24 ons Anes History & Medical History - Anesthetic History Anesthesia Complications: reports: No previous complications - Medical History Cardiovascular: reports: Hypertension, Angina, Arrhythmia Pulmonary: reports: Asthma, COPD, Sleep apnea Gastrointestinal: reports: GERD, Colon polyps Urinary: reports: Incontinence Neuro: reports: None Musculoskeletal: reports: Osteoarthritis, Fibromyalgia, Osteoporosis, Osteopenia, Fatigue, Chronic back pain Endocrine/Autoimmune: reports: HyPOthyroidism, Other Blood Disorders: reports: None Skin: reports: Other drug resistant infections, Other Smoking Status: Never smoker - Surgical History General: Colonoscopy Gynecologic: section, 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 Dermatologic: Skin cancer surgery Exam General: Alert Dental: WNL Mouth Opening: Can't Open Mouth Mallampati classification: I Respiratory: Lungs clear Cardiovascular: Regular rate, Normal S1, Normal S2 Mental/Cognitive Status: Alert/Oriented X3 Plan Anesthesia Type: General Consent for Procedure(s) Verified and Reviewed: Yes Code Status: Attempt Resuscitation ASA classification: 3-Severe systemic disease Is this case an emergency?: No
[2020-03-10] MEDS ORDERED: LACTATED RINGERS 1,000 ML IV SCH (11:00)
[2020-03-10] MEDS ORDERED: BUPIVACAINE 0.5% PF 30 ML VIAL SUBQ ONE ×3 (11:16)
[2020-03-10] MEDS ORDERED: LIDOCAINE 1%-EPI 1:100000 20 ML MDV SUBQ ONE ×2 (11:16)
--- NOTE | 2020-03-10 12:27 | OPERATIVE REPORT ---
Operative Report - General Procedure Date: 03/10/20 Planned Procedure: Laparoscopic Cholecystectomy Pre-Op Diagnosis: Symptomatic cholelithiasis Procedure Performed: Laparoscopic cholecystectomy Post Op Diagnosis: Symptomatic cholelithiasis - Procedure Note Primary Surgeon: Dante Anesthesia Provider: CELESTINA Francois CRNA Anesthesia Technique: General ET tube, Local Pathology: Gall bladder to pathology in formalin Estimated Blood Loss (mL): 15 Findings: Thin walled gall bladder with palpable stones Complications: None apparent - Other Other Information/Narrative: After obtaining informed consent the patient is brought to the operating room and placed in the supine position on the operating table. Following successful induction of general endotracheal anesthesia, appropriate padding of all bony prominences, and placement of appropriate monitors, the abdomen was prepped and draped in the standard surgical fashion. A timeout was held per scope protocol. All elements of the surgical safety checklist were followed before, during, and after the procedure. Following infiltration with local anesthetic to create a field block, an incision was created inferior to the umbilicus and carried down through the skin and subcutaneous tissue to reveal the fascia below. 2-0 Vicryl retention sutures were placed on either side of the midline and the abdomen was entered under direct vision using a 15 blade scalpel. A 10 mm blunt Maher balloon trocar was placed in the abdominal cavity and it was insufflated to 15 mmHg pressure. The patient was placed in reverse Trendelenburg position with the left side rotated toward the floor. A second trocar, 5 mm, was placed in the midepigastrium under direct vision and after anesthetization of the surrounding skin.A third trocar, also 5 mm was placed in the right upper quadrant for retraction of the gallbladder and a fourth 1 just medial to that as a working port as well. The gallbladder was examined. It was adherent to the surrounding structures including the omentum and the right colon. These structures were carefully dissected free from the surface of the gallbladder using a mixture of blunt and sharp dissection. The fundus of the gallbladder was then grasped and elevated up over the liver revealing the cholecysto hepatoduodenal ligament. The neck of the gallbladder was retracted laterally and the cystic duct and artery were carefully identified. The common duct was visualized but not skeletonized. The cystic duct was clipped 3 times proximally and once distally and divided, the cystic artery was clipped twice proximally, once distally, and divided. The gallbladder was then liberated from its bed in the liver using cautery. It was placed in an Endo Catch bag and removed via the umbilical port with a camera in the epigastric position. The camera was replaced in the umbilical position and the abdomen was checked for hemostasis. It was irrigated with warm saline solution and aspirated free of all fluid and particulate matter. The trochars were then removed under direct vision and the abdomen desufflated. The umbilical incision was closed with interrupted Vicryl suture and Monocryl was placed in all of the skin incisions. All sponge, needle, and instrument counts were correct at the conclusion of the case. The patient was allowed awaken from anesthesia without difficulty and taken to the postanesthesia care unit in good condition.
[2020-03-10] MEDS ORDERED: oxyCODONE 5 MG TABLET PO PRN (12:28)
[2020-03-10] MEDS ORDERED: ACETAMINOPHEN 325 MG TABLET PO PRN (12:28)
[2020-03-10] MEDS ORDERED: IBUPROFEN 600 MG TABLET PO PRN (12:28)
[2020-03-10] MEDS ORDERED: IBUPROFEN 600 MG TABLET PO ONE (13:29)
[2020-03-10] MEDS ORDERED: oxyCODONE 5 MG TABLET ONE (13:30)
[2020-03-10 13:37] VITALS: BP 146/64
== END 2020-03-10 08:08 | disposition home or self-care (01) ==
LOC: SDS 08:07
PROVIDERS: ATTEND Surgery
PROC: 0FT44ZZ Resection of Gallbladder, Percutaneous Endoscopic Approach (ICD-10-PCS; principal; 2020-03-10 09:30)
DX: K80.10 Calculus of gallbladder with chronic cholecystitis without obstruction (principal); I10 Essential (primary) hypertension; J44.9 Chronic obstructive pulmonary disease, unspecified; G47.30 Sleep apnea, unspecified; Z86.14 Personal history of Methicillin resistant Staphylococcus aureus infection; Z79.51 Long term (current) use of inhaled steroids; Z79.899 Other long term (current) drug therapy
CPT/HCPCS: 47562; A9270; J0131; J0690; J7120

== ENCOUNTER 2020-05-20 12:44 | Outpatient (CLI) | payer MEDICARE, MEDICAID | END 2020-05-20 12:45 | disposition home or self-care (01) | LOC: COV 12:44 | PROVIDERS: ATTEND Family Medicine | DX: U07.1 COVID-19 (principal) ==

== ENCOUNTER 2020-05-20 16:46 | Outpatient (CLI) | payer MEDICARE, MEDICAID | END 2020-05-20 16:47 | disposition critical access hospital (66) | LOC: EMS 16:46 | PROVIDERS: ATTEND Surgery | DX: R05 Cough (principal); R51.9 Headache, unspecified; R50.9 Fever, unspecified; R11.0 Nausea; Z20.828 Contact with and (suspected) exposure to other viral communicable diseases | CPT/HCPCS: A0425; A0429 ==

== ENCOUNTER 2020-05-20 17:37 | Emergency (ER) | payer MEDICARE, MEDICAID ==
[2020-05-20 18:10] LABS: BASOPHILS % (AUTO) 0.4 %; EOSINOPHILS # (AUTO) 0.2 10^3/uL (0.0-0.7); EOSINOPHILS % (AUTO) 2.5 %; HGB - HEMOGLOBIN 12.5 g/dL (12.0-16.0); LYMPHOCYTES # (AUTO) 1.9 10^3/uL (1.5-3.5); LYMPHOCYTES % (AUTO) 27.1 %; MEAN CORPUSCULAR HEMOGLOBIN 28.7 pg (27.0-31.0); MEAN CORPUSCULAR HGB CONC 32.2 g/dL (32.0-36.0); MEAN PLATELET VOLUME 7.9 fL (7.9-10.8); MONOCYTES # (AUTO) 1.1 10^3/uL (0.0-1.0); MONOCYTES % (AUTO) 14.9 %; NEUTROPHILS # (AUTO) 3.8 10^3/uL (1.5-6.6); NEUTROPHILS % (AUTO) 53.6 %; PLT - PLATELET COUNT 220 10^3/uL (130-450); RED BLOOD COUNT 4.36 10^6/uL (4.20-5.40); RED CELL DISTRIBUTION WIDTH 14.8 % (12.0-15.0); WHITE BLOOD COUNT 7.2 x10^3/uL (4.8-10.8)
[2020-05-20 18:23] LABS: ALBUMIN 3.4 g/dL (3.2-5.5); ALBUMIN/GLOBULIN RATIO 1.1 (1.0-2.2); BILIRUBIN,TOTAL 0.3 mg/dL (0.2-1.0); CALCIUM 8.6 mg/dL (8.5-10.3); TOTAL PROTEIN 6.6 g/dL (6.7-8.2)
--- NOTE | 2020-05-20 18:30 | XRAY Report ---
PROCEDURE: Chest 1 View X-Ray INDICATIONS: Chest Pain TECHNIQUE: One view of the chest was acquired. COMPARISON: Chest x-ray 01/08/2020 FINDINGS: Surgical changes and devices: None. Lungs and pleura: No pleural effusions or pneumothorax. Lungs are clear. Mediastinum: Mediastinal contours appear normal. Heart size is normal. Bones and chest wall: No suspicious bony lesions. Overlying soft tissues appear unremarkable. IMPRESSION: No acute pulmonary process. Reviewed by: Tamra Willson MD on 05/20/2020 5:29 PM [facility] Approved by: Tamra Willson MD on 05/20/2020 5:29 PM [facility] Station ID: [id number]
[2020-05-20] MEDS ORDERED: AZITHROMYCIN 250 MG TABLET PO STA (19:23)
--- NOTE | 2020-05-20 19:24 | ED Physician Documentation ---
PD HPI DYSPNEA - Stated complaint Stated Complaint: SOA - Chief complaint Chief Complaint: Resp - History obtained from History obtained from: Patient - Additional information Additional information: Pt comes to the ED c/o cough productive of yellow sputum and a feeling of fever and chills for past few days. No lightheadedness or palpitations. No loss of sense of taste or smell. No vomiting or diarrhea. Pt has a h/o asthma, and has had frequent bouts of pneumonia previously. No chest pain. Mild dyspnea with exertion. No other complaints at this time. Pt states she did go get a drive-through covid test at the urging of her PCP's office, but does not know her results yet. Review of Systems Ten Systems: 10 systems reviewed and negative Constitutional: reports: Fever (subjective), Chills, Reviewed and negative Eyes: reports: Reviewed and negative Ears: reports: Reviewed and negative Nose: reports: Reviewed and negative Throat: reports: Reviewed and negative Cardiac: reports: Reviewed and negative. denies: Chest pain / pressure Respiratory: reports: Dyspnea, Cough GI: reports: Reviewed and negative : reports: Reviewed and negative Skin: reports: Reviewed and negative Musculoskeletal: reports: Reviewed and negative Neurologic: reports: Reviewed and negative Psychiatric: reports: Reviewed and negative Endocrine: reports: Reviewed and negative Immunocompromised: reports: Reviewed and negative PD PAST MEDICAL HISTORY - Past Medical History Past Medical History: Yes Cardiovascular: Hypertension, Angina, Arrhythmia Respiratory: Asthma, COPD, Pneumonia, Sleep apnea Neuro: Peripheral neuropathy Endocrine/Autoimmune: HyPOthyroidism, Other GI: GERD, Colon polyps 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, Other : Incontinence HEENT: Chronic vision loss Psych: Depression, Anxiety, Panic attacks, Post traumatic stress disorder, Claustrophobia Musculoskeletal: Osteoarthritis, Fibromyalgia, Osteoporosis, Osteopenia, Fatigue, Chronic back pain Derm: Other drug resistant infections, Other - Past Surgical History Past Surgical History: Yes General: Cholecystectomy, Colonoscopy /ACID STRENGTH INSPECTOR: section, 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 Derm: Skin cancer surgery - Present Medications Home Medications: Ambulatory Orders Medication Instructions Recorded Confirmed Metoprolol Tartrate 25 mg PO BID 12/27/16 03/06/20 Levothyroxine Sodium 125 mcg PO DAILY #30 tablet 06/21/17 03/06/20 Albuterol Sulfate [Proair Hfa 1 - 2 puffs INH Q4H PRN 03/06/20 03/06/20 Inhaler] Fluticasone 44 Mcg [Flovent] 1 puffs INH BID 03/06/20 03/06/20 Gabapentin [Neurontin] 600 mg PO TID 03/06/20 03/06/20 Hydrocortisone 10 mg PO BID 03/06/20 03/06/20 Ipratropium [Atrovent] 1 puffs INH Q6H 03/06/20 03/06/20 Lamotrigine [Lamotrigine ER] 200 mg PO DAILY 03/06/20 03/06/20 Meloxicam 15 mg PO DAILY 03/06/20 03/06/20 Pantoprazole [Protonix] 40 mg PO DAILY 03/06/20 03/06/20 Prazosin HCl 5 mg PO DAILY 03/06/20 03/06/20 Risperidone [Risperdal] 0.5 mg PO DAILY 03/06/20 03/06/20 Sucralfate 1 gm PO ACHS 03/06/20 03/06/20 Trazodone HCl 100 mg PO DAILY 03/06/20 03/06/20 Venlafaxine HCl [Effexor Xr] 150 mg PO DAILY 03/06/20 03/06/20 Verapamil HCl [Verapamil ER] 120 mg PO DAILY 03/06/20 03/06/20 Ondansetron Odt [Zofran Odt] 4 mg TL Q6H PRN #10 tablet 03/10/20 oxyCODONE [Roxicodone] 5 mg PO Q4-6H PRN #14 tablet 03/10/20 Azithromycin [Zithromax] 0 mg PO DAILY #6 tablet 05/20/20 - Allergies Allergies/Adverse Reactions: Allergies Allergy/AdvReac Type Severity Reaction Status Date / Time bee venom protein (honey bee) Allergy Unknown Verified 05/23/20 09:51 fluticasone Allergy Unknown Verified 05/23/20 09:51 pregabalin [From Lyrica] AdvReac Hallucinati Verified 05/20/20 17:46 ons - Social History Does the pt smoke?: No Smoking Status: Never smoker Does the pt drink ETOH?: No Does the pt have substance abuse?: No - Immunizations Immunizations are current?: Yes Immunizations: Other immun not current - POLST Patient has POLST: No POLST Status: NO blood products due to quaker. PD ED PE NORMAL - Vitals Vital signs reviewed: Yes - General General: Alert and oriented X 3, No acute distress (Pt is well-appearing.), Well developed/nourished - HEENT HEENT: Atraumatic, PERRL, EOMI, Moist mucous membranes - Neck Neck: Supple, no meningeal sign - Cardiac Cardiac: RRR, No murmur - Respiratory Respiratory: No respiratory distress, Clear bilaterally - Abdomen Abdomen: Soft, Non tender, Non distended - Derm Derm: Normal color, Warm and dry, No rash - Extremities Extremities: No deformity, No edema, No calf tenderness / cord - Neuro Neuro: Alert and oriented X 3, Other (grossly normal) - Psych Psych: Normal mood, Normal affect Results - Vitals Vitals: Oxygen O2 Source Room air - EKG (time done) 1757 Rate: Rate (enter#) (84) Rhythm: NSR [place]: Normal Intervals: Normal OR QRS: LVH (probable) Ischemia: Normal ST segments Compare to prior EKG: Old EKG unavailable Computer interpretation: Agree with computer - Labs Labs: Laboratory Tests 05/20/20 05/20/20 05/20/20 18:00 18:00 18:00 WBC 7.2 RBC 4.36 Hgb 12.5 Hct 38.8 MCV 89.0 MCH 28.7 MCHC 32.2 RDW 14.8 Plt Count 220 MPV 7.9 Neut # (Auto) 3.8 Lymph # (Auto) 1.9 Roane # (Auto) 1.1 H Eos # (Auto) 0.2 Baso # (Auto) 0.0 Absolute Nucleated RBC 0.00 Nucleated RBC % 0.0 Sodium 137 Potassium 4.2 Chloride 102 Carbon Dioxide 26 Anion Gap 9.0 BUN 18 Creatinine 1.0 Estimated GFR (MDRD) 56 L Glucose 88 Calcium 8.6 Total Bilirubin 0.3 AST 21 ALT 22 Alkaline Phosphatase 97 Troponin I High Sens 5.2 B-Natriuretic Peptide Total Protein 6.6 L Albumin 3.4 Globulin 3.2 Albumin/Globulin Ratio 1.1 Lipase 54 H 05/20/20 18:00 WBC RBC Hgb Hct MCV MCH MCHC RDW Plt Count MPV Neut # (Auto) Lymph # (Auto) Roane # (Auto) Eos # (Auto) Baso # (Auto) Absolute Nucleated RBC Nucleated RBC % Sodium Potassium Chloride Carbon Dioxide Anion Gap BUN Creatinine Estimated GFR (MDRD) Glucose Calcium Total Bilirubin AST ALT Alkaline Phosphatase Troponin I High Sens B-Natriuretic Peptide 11 Total Protein Albumin Globulin Albumin/Globulin Ratio Lipase - Rads (name of study) CXR Radiology: Final report received, EMP read indepedently, See rad report PD MEDICAL DECISION MAKING - ED course Complexity details: reviewed old records, reviewed results, re-evaluated patient, considered differential, d/w patient ED course: Pt was worked up with labs, EKG, and CXR, all of which were unremarkable. Her WBC count was normal, and pt's respiratory exam, O2 sat, and general appearance were all reassuring. Given the pt's pulmonary history, productive cough, and fever, I felt she should be treated with antibiotics. Pt was started on Zithromax. We have discussed the usual indications for return. Departure - Departure Disposition: 01 Home, Self Care Clinical Impression: Bronchitis URI (upper respiratory infection) Qualifiers: URI type: unspecified viral URI Qualified Code(s): J06.9 - Acute upper respiratory infection, unspecified Condition: Stable Instructions: ED Upper Resp Infec Abx Tx, ED Viral Syndrome Prescriptions: Azithromycin [Zithromax] 0 mg PO DAILY #6 tablet Comments: Your x-ray does not show any pneumonia. Your symptoms may be entirely viral in nature, but given your underlying history of significant lung disease, along with the development of productive cough and fever, you will be treated with antibiotics. You should quarantine at home until you get your covid test results back. Right now, your lungs are fairly clear, and your oxygen levels, heart rate, and blood pressure are good, so there is no role for hospital admission at this time. However, if you begin having severely worsening shortness of breath, you should return to the emergency department. You may take ibuprofen and/or Tylenol for your fevers and discomfort. Please continue to drink plenty of water, and follow up with your primary doctor after the weekend if you are not noticing any improvement in your symptoms. Discharge Date/Time: 05/20/20 20:38
[2020-05-20 20:37] VITALS: BP 144/72
== END 2020-05-20 20:38 | disposition home or self-care (01) ==
LOC: EDUNIT# → ED 17:37
DX: U07.1 COVID-19 (principal); J40 Bronchitis, not specified as acute or chronic; J06.9 Acute upper respiratory infection, unspecified; I10 Essential (primary) hypertension
CPT/HCPCS: 36415; 71045; 80053; 83690; 83880; 84484; 85025; 93005; 99284; A9270; U0004

== ENCOUNTER 2020-08-07 08:00 | Outpatient (CLI) | payer MEDICARE, MEDICAID ==
[2020-08-07 18:15] LABS: BASOPHILS # (AUTO) 0.1 10^3/uL (0.0-0.1); BASOPHILS % (AUTO) 0.6 %; EOSINOPHILS # (AUTO) 0.3 10^3/uL (0.0-0.7); EOSINOPHILS % (AUTO) 3.3 %; HGB - HEMOGLOBIN 12.5 g/dL (12.0-16.0); LYMPHOCYTES # (AUTO) 3.2 10^3/uL (1.5-3.5); LYMPHOCYTES % (AUTO) 41.2 %; MEAN CORPUSCULAR HEMOGLOBIN 27.5 pg (27.0-31.0); MEAN CORPUSCULAR HGB CONC 29.8 g/dL (32.0-36.0); MEAN CORPUSCULAR VOLUME 92.1 fL (81.0-99.0); MEAN PLATELET VOLUME 8.7 fL (7.9-10.8); MONOCYTES # (AUTO) 0.6 10^3/uL (0.0-1.0); MONOCYTES % (AUTO) 7.5 %; NEUTROPHILS # (AUTO) 3.7 10^3/uL (1.5-6.6); NEUTROPHILS % (AUTO) 46.9 %; PLT - PLATELET COUNT 307 10^3/uL (130-450); RED BLOOD COUNT 4.55 10^6/uL (4.20-5.40); RED CELL DISTRIBUTION WIDTH 16.4 % (12.0-15.0); WHITE BLOOD COUNT 7.9 x10^3/uL (4.8-10.8)
[2020-08-07 18:31] LABS: ALBUMIN 3.9 g/dL (3.2-5.5); ALBUMIN/GLOBULIN RATIO 1.3 (1.0-2.2); ALKALINE PHOSPHATASE 82 IU/L (42-121); ALT ALANINE AMINOTRANSFERASE 19 IU/L (10-60); AST ASPARTATE AMINOTRANSFERASE 17 IU/L (10-42); BILIRUBIN,TOTAL 0.4 mg/dL (0.2-1.0); BUN - BLOOD UREA NITROGEN 19 mg/dL (6-20); CALCIUM 8.8 mg/dL (8.5-10.3); CARBON DIOXIDE - CO2 25 mmol/L (21-32); CHLORIDE 102 mmol/L (101-111); CHOL/HDL RATIO 4.3 (<4.4); CHOLESTEROL 256 mg/dL; CREATININE 0.9 mg/dL (0.4-1.0); GLUCOSE 89 mg/dL (70-100); HDL CHOLESTEROL 60 mg/dL; LDL CHOLESTEROL,CALCULATED 170 mg/dL; LDL/HDL RATIO 2.8 (<4.4); VLDL CHOLESTEROL 26 mg/dL
[2020-08-07 20:06] LABS: HEMOGLOBIN A1c% 5.7 % (4.27-6.07)
== END 2020-08-07 23:59 | disposition home or self-care (01) ==
LOC: LAB.WCP 08:00
PROVIDERS: ATTEND Internal Medicine
DX: E27.1 Primary adrenocortical insufficiency (principal); Z13.9 Encounter for screening, unspecified; E03.9 Hypothyroidism, unspecified
CPT/HCPCS: 36415; 80053; 80061; 82306; 83036; 83721; 84443; 85025

== ENCOUNTER 2020-08-11 17:19 | Outpatient (CLI) | payer MEDICARE, MEDICAID | END 2020-08-11 17:20 | disposition home or self-care (01) | LOC: COV 17:19 | PROVIDERS: ATTEND Surgery | DX: Z01.812 Encounter for preprocedural laboratory examination (principal); Z12.11 Encounter for screening for malignant neoplasm of colon; Z20.822 Contact with and (suspected) exposure to COVID-19 ==

== ENCOUNTER 2020-08-14 09:22 | Day surgery (SDC) | payer MEDICARE, MEDICAID ==
[2020-08-14] MEDS ORDERED: LACTATED RINGERS 1,000 ML IV ONE ×2 (09:41→12:36)
--- NOTE | 2020-08-14 11:37 | ANESTHESIA ---
Pre-Anesthesia VS, & Labs - Diagnosis chronic constipation - Procedure EGD and colonoscopy Vital Signs: Temp Pulse Resp BP Pulse Ox 36.5 C 81 12 162/79 H 95 08/14/20 09:57 08/14/20 09:57 08/14/20 09:57 08/14/20 09:57 08/14/20 09:57 Height: 5 ft 2 in Weight (kg): 140.7 kg Body Mass Index: 56.7 BMI Classification: Morbidly Obese - NPO >8 hours - Is Patient ?: No Home Medications and Allergies Metoprolol Tartrate 25 mg PO BID 12/27/16 Albuterol Sulfate [Proair Hfa Inhaler] 1 - 2 puffs INH Q4H PRN 03/06/20 Gabapentin [Neurontin] 600 mg PO TID 03/06/20 Hydrocortisone 10 mg PO BID 03/06/20 Ipratropium [Atrovent] 1 puffs INH Q6H 03/06/20 Lamotrigine [Lamotrigine ER] 200 mg PO DAILY 03/06/20 Meloxicam 15 mg PO DAILY 03/06/20 Pantoprazole [Protonix] 40 mg PO DAILY 03/06/20 Prazosin HCl 5 mg PO DAILY 03/06/20 Risperidone [Risperdal] 0.5 mg PO DAILY 03/06/20 Sucralfate 1 gm PO ACHS 03/06/20 Trazodone HCl 100 mg PO DAILY 03/06/20 Venlafaxine HCl [Effexor Xr] 150 mg PO DAILY 03/06/20 Verapamil HCl [Verapamil ER] 120 mg PO DAILY 03/06/20 Allergies/Adverse Reactions: Allergies Allergy/AdvReac Type Severity Reaction Status Date / Time fluticasone Allergy Severe Anaphylaxis Verified 08/14/20 10:14 bee venom protein (honey bee) Allergy Unknown Verified 05/23/20 09:51 pregabalin [From Lyrica] AdvReac Hallucinati Verified 05/20/20 17:46 ons Anes History & Medical History - Anesthetic History Anesthesia Complications: reports: No previous complications - Medical History Cardiovascular: reports: Hypertension, Arrhythmia Pulmonary: reports: Asthma, COPD, Pneumonia, Sleep apnea (does not use cpap) Gastrointestinal: reports: GERD, Colon polyps Urinary: reports: Incontinence Neuro: reports: Peripheral neuropathy Musculoskeletal: reports: Osteoarthritis, Fibromyalgia, Osteoporosis, Osteopenia, Fatigue, Chronic back pain Endocrine/Autoimmune: reports: HyPOthyroidism, Other Blood Disorders: reports: None Skin: reports: Other drug resistant infections, Other Smoking Status: Never smoker Psychosocial: reports: Depression, Anxiety, Other (PTSD) - Surgical History General: Cholecystectomy, Colonoscopy Gynecologic: section, 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 Dermatologic: Skin cancer surgery Exam General: Alert, Oriented x3, Cooperative, No acute distress Dental: WNL Mouth Openin Fingerbreadth Neck Mobility: Normal Mallampati classification: I Thyromental Distance: 4-6 cm Mental/Cognitive Status: Alert/Oriented X3, Normal for patient Plan Anesthesia Type: MAC Consent for Procedure(s) Verified and Reviewed: Yes Code Status: Attempt Resuscitation ASA classification: 3-Severe systemic disease Is this case an emergency?: No
[2020-08-14] MEDS ORDERED: PROPOFOL 500 MG/50 ML 500 MG/50 ML VIAL ONE (11:51)
[2020-08-14] MEDS ORDERED: fentaNYL 100 MCG/2 ML VIAL ONE (11:52)
[2020-08-14] MEDS ORDERED: MIDAZOLAM 2 MG/2 ML VIAL ONE (11:52)
[2020-08-14 12:38] VITALS: BP 156/62
--- NOTE | 2020-08-14 15:17 | ANESTHESIA POST OP EVALUATION ---
Anesthesia Post Eval - Post Anesthesia Eval Vitals: Last Vital Signs Temp 37.2 C 08/14/20 12:25 Pulse 92 08/14/20 12:25 Resp 16 08/14/20 12:25 BP 156/62 H 08/14/20 12:25 Pulse Ox 98 08/14/20 12:25 CV Function Including HR & BP: positive: Stable Pain Control: positive: Satisfactory Nausea & Vomiting: positive: Negative Mental Status: positive: Baseline Respiratory Status: Airway Patent Hydration Status: Satisfactory Anesthesia Complications: positive: None
== END 2020-08-14 09:23 | disposition home or self-care (01) ==
LOC: SDS 09:22
PROVIDERS: ATTEND Surgery
PROC: 0DBP8ZX Excision of Rectum, Via Natural or Artificial Opening Endoscopic, Diagnostic (ICD-10-PCS; principal; 2020-08-14 10:30)
PROC: 0DB78ZX Excision of Stomach, Pylorus, Via Natural or Artificial Opening Endoscopic, Diagnostic (ICD-10-PCS; 2020-08-14 10:30)
DX: K21.00 Gastro-esophageal reflux disease with esophagitis, without bleeding (principal); K22.0 Achalasia of cardia; K25.9 Gastric ulcer, unspecified as acute or chronic, without hemorrhage or perforation; K29.70 Gastritis, unspecified, without bleeding; K63.89 Other specified diseases of intestine; K64.4 Residual hemorrhoidal skin tags; J44.9 Chronic obstructive pulmonary disease, unspecified; E27.1 Primary adrenocortical insufficiency; E66.01 Morbid (severe) obesity due to excess calories; Z68.43 Body mass index [BMI] 50.0-59.9, adult; I10 Essential (primary) hypertension; G47.30 Sleep apnea, unspecified; E03.9 Hypothyroidism, unspecified; I49.9 Cardiac arrhythmia, unspecified; F43.10 Post-traumatic stress disorder, unspecified; G62.9 Polyneuropathy, unspecified; F32.9 Major depressive disorder, single episode, unspecified; F41.9 Anxiety disorder, unspecified; M79.7 Fibromyalgia; R32 Unspecified urinary incontinence; G89.29 Other chronic pain; M81.0 Age-related osteoporosis without current pathological fracture; M54.9 Dorsalgia, unspecified; M19.90 Unspecified osteoarthritis, unspecified site; Z87.01 Personal history of pneumonia (recurrent); Z79.899 Other long term (current) drug therapy
CPT/HCPCS: 43239; 45380; J7120

== ENCOUNTER 2020-09-25 12:45 | Outpatient (CLI) | payer MEDICARE, MEDICAID ==
--- NOTE | 2020-09-25 13:20 | XRAY Report ---
PROCEDURE: Wrist 4 View RT INDICATIONS: RT WRIST CONTUSION TECHNIQUE: 4 views of the wrist were acquired. COMPARISON: None FINDINGS: Bones: No fractures or dislocations. Advanced degenerative arthritis of the first carpometacarpal chiquita int and moderate degenerative arthritis of the triscaphe joint. Osteochondroma of the base of the janett mb. Scaphoid view: Scaphoid intact Soft tissues: No suspicious soft tissue calcifications. IMPRESSION: 1. No evidence acute bony abnormality of the right wrist. 2. Advanced degenerative change base of the thumb. 3. 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 Consider MRI with and without c ontrast for further evaluation. Reviewed by: Brandon Yen MD on 09/25/2020 1:19 PM PDT Approved by: Brandon Yen MD on 09/25/2020 1:19 PM PDT Station ID: [id number]
== END 2020-09-25 23:59 | disposition home or self-care (01) ==
LOC: DI.N 12:45
PROVIDERS: ATTEND Nurse Practitioner
DX: S60.211A Contusion of right wrist, initial encounter (principal); M18.11 Unilateral primary osteoarthritis of first carpometacarpal joint, right hand; D16.11 Benign neoplasm of short bones of right upper limb

== ENCOUNTER 2020-12-02 10:16 | Outpatient (CLI) | payer MEDICARE, MEDICAID | END 2020-12-02 10:17 | disposition critical access hospital (66) | LOC: EMS 10:16 | DX: R53.83 Other fatigue (principal); R53.1 Weakness | CPT/HCPCS: A0425; A0429 ==

== ENCOUNTER 2020-12-02 10:35 | Emergency (ER) | payer MEDICARE, MEDICAID ==
[2020-12-02] MEDS ORDERED: SODIUM CHLORIDE 0.9% 1,000 ML IV STA (11:16)
[2020-12-02] MEDS ORDERED: HYDROCORTISONE SUCCINATE 100 MG/2 ML VIAL IVP STA (11:17)
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
[2020-12-02 11:51] LABS: BASOPHILS % (AUTO) 0.3 %; EOSINOPHILS # (AUTO) 0.1 10^3/uL (0.0-0.7); EOSINOPHILS % (AUTO) 0.6 %; HCT - HEMATOCRIT 41.4 % (37.0-47.0); HGB - HEMOGLOBIN 12.7 g/dL (12.0-16.0); LYMPHOCYTES # (AUTO) 3.2 10^3/uL (1.5-3.5); LYMPHOCYTES % (AUTO) 33.9 %; MEAN CORPUSCULAR HEMOGLOBIN 27.7 pg (27.0-31.0); MEAN CORPUSCULAR HGB CONC 30.7 g/dL (32.0-36.0); MEAN CORPUSCULAR VOLUME 90.2 fL (81.0-99.0); MEAN PLATELET VOLUME 8.3 fL (7.9-10.8); MONOCYTES # (AUTO) 0.6 10^3/uL (0.0-1.0); MONOCYTES % (AUTO) 6.4 %; NEUTROPHILS # (AUTO) 5.5 10^3/uL (1.5-6.6); NEUTROPHILS % (AUTO) 57.9 %; PLT - PLATELET COUNT 289 10^3/uL (130-450); RED BLOOD COUNT 4.59 10^6/uL (4.20-5.40); WHITE BLOOD COUNT 9.5 x10^3/uL (4.8-10.8)
--- NOTE | 2020-12-02 11:53 | XRAY Report ---
PROCEDURE: Chest 1 View X-Ray INDICATIONS: chest pain TECHNIQUE: One view of the chest was acquired. COMPARISON: Single view chest 05/20/2020. FINDINGS: Surgical changes and devices: None. Lungs and pleura: No pleural effusions or pneumothorax. Lungs are clear. Mediastinum: Mediastinal contours appear normal. Heart size is normal. Bones and chest wall: No suspicious bony lesions. Overlying soft tissues appear unremarkable. IMPRESSION: Mild asymmetric elevation of the right hemidiaphragm, no pneumonia found. A source of chest pain is n ot identified. Reviewed by: Hamzah Lopez MD on 12/02/2020 11:52 AM PDT Approved by: Hamzah Lopez MD on 12/02/2020 11:52 AM PDT Station ID: [id number]
[2020-12-02 12:03] LABS: ALBUMIN 3.7 g/dL (3.2-5.5); ALBUMIN/GLOBULIN RATIO 1.1 (1.0-2.2); BILIRUBIN,TOTAL 0.6 mg/dL (0.2-1.0); CALCIUM 9.2 mg/dL (8.5-10.3); CREATININE 0.9 mg/dL (0.4-1.0); POTASSIUM 4.5 mmol/L (3.5-5.0)
[2020-12-02 13:37] LABS: BILIRUBIN,URINE NEGATIVE (NEGATIVE); CLARITY,URINE CLEAR (CLEAR); GLUCOSE, URINE (UA) NEGATIVE (NEGATIVE); KETONES,URINE (UA) NEGATIVE (NEGATIVE); LEUKOCYTE ESTERASE, URINE NEGATIVE (NEGATIVE); NITRITE,URINE NEGATIVE (NEGATIVE); OCCULT BLOOD,URINE NEGATIVE (NEGATIVE); PH,URINE 6.5 PH (5.0-7.5); PROTEIN,URINE NEGATIVE (NEGATIVE); UROBILINOGEN,URINE 0.2 (NORMAL) E.U./dL (NORMAL)
[2020-12-02 15:24] VITALS: BP 122/82
== END 2020-12-02 15:21 | disposition home or self-care (01) ==
LOC: EDUNIT# → ED 10:35
DX: E86.0 Dehydration (principal); R53.83 Other fatigue; Z20.822 Contact with and (suspected) exposure to COVID-19; E27.1 Primary adrenocortical insufficiency; I10 Essential (primary) hypertension; E66.01 Morbid (severe) obesity due to excess calories; Z68.43 Body mass index [BMI] 50.0-59.9, adult
CPT/HCPCS: 36415; 71045; 80053; 81003; 83605; 83690; 85025; 96361; 96374; 99281; 99284; U0004; 81001; 87086

== ENCOUNTER 2021-01-12 14:32 | Outpatient (CLI) | payer MEDICARE, MEDICAID | END 2021-01-12 14:33 | disposition critical access hospital (66) | LOC: EMS 14:32 | DX: Z04.3 Encounter for examination and observation following other accident (principal); R51.9 Headache, unspecified; M25.511 Pain in right shoulder; M25.551 Pain in right hip; M79.641 Pain in right hand; M79.674 Pain in right toe(s) | CPT/HCPCS: A0425; A0429 ==

== ENCOUNTER 2021-01-12 14:53 | Emergency (ER) | payer MEDICARE, MEDICAID ==
[2021-01-12] MEDS ORDERED: KETOROLAC 15 MG/ML VIAL IM STA (15:00)
[2021-01-12] MEDS ORDERED: ACETAMINOPHEN 325 MG TABLET PO STA (15:00)
[2021-01-12] MEDS ORDERED: HYDROmorphone 1 MG/ML CARPUJECT IM STA (15:02)
--- NOTE | 2021-01-12 15:03 | ED Physician Documentation ---
PD HPI Fall - Stated complaint Stated Complaint: GLF - History obtained from History obtained from: Patient, EMS - History of Present Illness Mechanism of injury: Tripped Fall distance: Sitting position (she was on her deck moving potted plants when went to sit down and the chair moved, so she fell to her right side from squatted/almost sitting position.) Where injury occurred: Home Timing - onset: Today Injury(ies) location: Right Upper Extremity (shoulder and wrist), Right Lower Extremity (lateral/posterior hip). 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, Other : Incontinence HEENT: Chronic vision loss Psych: Depression, Anxiety, Panic attacks, Post traumatic stress disorder, Claustrophobia Musculoskeletal: Osteoarthritis, Fibromyalgia, Osteoporosis, Osteopenia, Fatigue, Chronic back pain Derm: Other drug resistant infections, Other - Past Surgical History Past Surgical History: Yes General: Cholecystectomy, 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, 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 Derm: Skin cancer surgery - Present Medications Home Medications: Ambulatory Orders Medication Instructions Recorded Confirmed Metoprolol Tartrate 25 mg PO BID 12/27/16 08/14/20 Levothyroxine Sodium 125 mcg PO DAILY #30 tablet 06/21/17 08/14/20 Albuterol Sulfate [Proair Hfa 1 - 2 puffs INH Q4H PRN 03/06/20 08/14/20 Inhaler] Gabapentin [Neurontin] 600 mg PO TID 03/06/20 08/14/20 Hydrocortisone 10 mg PO BID 03/06/20 08/14/20 Ipratropium [Atrovent] 1 puffs INH Q6H 03/06/20 08/14/20 Lamotrigine [Lamotrigine ER] 200 mg PO DAILY 03/06/20 08/14/20 Meloxicam 15 mg PO DAILY 03/06/20 08/14/20 Pantoprazole [Protonix] 40 mg PO DAILY 03/06/20 08/14/20 Prazosin HCl 5 mg PO DAILY 03/06/20 08/14/20 Sucralfate 1 gm PO ACHS 03/06/20 08/14/20 Trazodone HCl 100 mg PO DAILY 03/06/20 08/14/20 Venlafaxine HCl [Effexor Xr] 150 mg PO DAILY 03/06/20 08/14/20 Verapamil HCl [Verapamil ER] 120 mg PO DAILY 03/06/20 08/14/20 risperiDONE [Risperdal] 0.5 mg PO DAILY 03/06/20 08/14/20 Ondansetron Odt [Zofran Odt] 4 mg TL Q6H PRN #10 tablet 03/10/20 08/14/20 Azithromycin [Zithromax] 0 mg PO DAILY #6 tablet 05/20/20 08/14/20 oxyCODONE [Roxicodone] 5 mg PO Q4-6H PRN #12 tablet 01/12/21 - Allergies Allergies/Adverse Reactions: Allergies Allergy/AdvReac Type Severity Reaction Status Date / Time bee venom protein (honey bee) Allergy Unknown Verified 01/12/21 15:09 pregabalin [From Lyrica] AdvReac Hallucinati Verified 01/12/21 15:09 ons - Social History Does the pt smoke?: No Smoking Status: Never smoker Does the pt drink ETOH?: No Does the pt have substance abuse?: No - Immunizations Immunizations are current?: Yes Immunizations: Other immun not current - POLST Patient has POLST: No POLST Status: NO blood products due to advent. PD ED PE NORMAL - Vitals Vital signs reviewed: Yes - General General: Alert and oriented X 3, No acute distress, Well developed/nourished - HEENT HEENT: Atraumatic - Neck Neck: Supple, no meningeal sign, No bony TTP, No adenopathy - Cardiac Cardiac: RRR, No murmur - Respiratory Respiratory: Clear bilaterally, Other (no chestwall tenderness. ) - Abdomen Abdomen: Soft, Non tender, Other (very obese) - Derm Derm: Normal color, Warm and dry - Extremities Extremities: Other (right shoulder tender laterally, without noted deformity but guarded ROM. Right wrist without deformity. Some tender dorsally. Right hip tender posterolaterally. Passive ROM without pain. No pain with impaction. ) - Neuro Neuro: Alert and oriented X 3, No motor deficit, No sensory deficit Results - Vitals Vitals: Vital Signs - 24 hr 01/12/21 15:03 Temperature 36.7 C Heart Rate 73 Respiratory 16 Rate Blood Pressure 132/63 H Oxygen O2 Source Room air - Rads (name of study) right shoulder Radiology: Prelim report reviewed (no fractures), See rad report right wrist Radiology: Prelim report reviewed (no fractures), See rad report right hip Radiology: Prelim report reviewed (limited by body habitus, but no noted fractures. ), See rad report Departure - Departure Disposition: 01 Home, Self Care Clinical Impression: Accidental fall Qualifiers: Encounter type: initial encounter Qualified Code(s): W19.XXXA - Unspecified fall, initial encounter Shoulder sprain Qualifiers: Encounter type: initial encounter Shoulder sprain type: unspecified sprain Laterality: right Qualified Code(s): S43.401A - Unspecified sprain of right shoulder joint, initial encounter Contusion, hip Qualifiers: Encounter type: initial encounter Laterality: right Qualified Code(s): S70.01XA - Contusion of right hip, initial encounter Right wrist sprain Qualifiers: Encounter type: initial encounter Qualified Code(s): S63.501A - Unspecified sprain of right wrist, initial encounter Condition: Stable Record reviewed to determine appropriate education?: Yes Instructions: ED Sprain Shoulder Follow-Up: Vignesh Silver MD [Primary Care Provider] - Prescriptions: oxyCODONE [Roxicodone] 5 mg PO Q4-6H PRN #12 tablet PRN Reason: Pain Comments: There are no signs of fractures of your shoulder wrist or hip visible to me or the radiologist. You can still be hurting there from sprain and bruising. More likely to can consider bruising of the hip area. The shoulder however may be more of a sprain versus bruising. Use the sling to help protect motion of the shoulder. Its okay to use the arm for light use as needed. Continue usual medications. Add Tylenol every 4-6 hours if needed for pain or oxycodone if needed for worse pain. I provided a short-term prescription for this. I would not anticipate needing stronger pain medicine beyond a couple of few days. I am prescribing a short course of narcotic pain medication for you. These are potentially dangerous and addictive medications that should be used carefully. These medications may constipate you. Take an rddc-grp-gujellt stool softener such as docusate twice daily with plenty of water while taking these medications. If you go 24 hours without a bowel movement, take [id number]-ugrnoaw MiraLAX, per package instructions. Do not drink or drive while taking these medications. If you received narcotic or sedating medications while in the emergency department do not drive for 24 hours. Store this medication in a safe, secure place and out of reach of children. It is a violation of federal law to give or sell this medication to another person or to use in a manner other than prescribed. The ED will not refill narcotic prescriptions, including prescriptions lost or stolen. You can dispose of unwanted medications at the [facility]'s office or at several pharmacies such as [facility]. Discharge Date/Time: 01/12/21 17:20
[2021-01-12 15:08] VITALS: BP 132/63
--- NOTE | 2021-01-12 16:00 | XRAY Report ---
PROCEDURE: Wrist 3 View RT INDICATIONS: fall to right side TECHNIQUE: 3 views of the wrist were acquired. COMPARISON: X-ray wrist 09/25/2020 FINDINGS: Bones: No fractures or dislocations. Previously noted first digit osteochondroma is not as well visu alized secondary to [id number]. Prominent first CMC arthritic narrowing. Scaphoid view: Not obtained. Soft tissues: No suspicious soft tissue calcifications. IMPRESSION: No visualized acute fracture or dislocation. However, occult injury cannot be excluded. Recommend mecca rt interval imaging follow-up in 7-10 days as clinically indicated for additional evaluation. Reviewed by: Tamra Willson MD on 01/12/2021 3:59 PM PDT Approved by: Tamra Willson MD on 01/12/2021 3:59 PM PDT Station ID: [id number]
--- NOTE | 2021-01-12 16:01 | XRAY Report ---
PROCEDURE: Hip w/Pelvis 2-3V RT INDICATIONS: fall to right side TECHNIQUE: AP pelvis with lateral view(s) of the right hip(s). COMPARISON: None. FINDINGS: Severely limited exam secondary to patient body habitus. Bones: No fractures or dislocations. Pelvic ring appears intact. No suspicious bony lesions. Soft tissues: The visualized bowel gas pattern is normal. No suspicious soft tissue calcifications. IMPRESSION: 1. Severely limited exam secondary to patient body habitus. No definitive fractures identified. Howev er, exam is markedly limited and if concern persists, CT is recommended. Reviewed by: Tamra Willson MD on 01/12/2021 4:00 PM PDT Approved by: Tamra Willson MD on 01/12/2021 4:00 PM PDT Station ID: [id number]
--- NOTE | 2021-01-12 16:01 | XRAY Report ---
PROCEDURE: Shoulder 3 View RT INDICATIONS: fall to right side TECHNIQUE: 3 views of the shoulder were acquired. COMPARISON: None. FINDINGS: Bones: No fractures or dislocations. No suspicious bony lesions. Visualized ribs appear intact. Soft tissues: No suspicious soft tissue calcifications. IMPRESSION: No visualized acute fracture or dislocation. However, occult injury cannot be excluded. Recommend short interval imaging follow-up in 7-10 days as clinically indicated for additional evalua tion. Reviewed by: Tamra Willson MD on 01/12/2021 3:59 PM PDT Approved by: Tamra Willson MD on 01/12/2021 3:59 PM PDT Station ID: [id number]
[2021-01-12] MEDS ORDERED: oxyCODONE 5 MG TABLET PO STA (16:50)
== END 2021-01-12 17:20 | disposition home or self-care (01) ==
LOC: EDUNIT# → ED 14:53
DX: S43.401A Unspecified sprain of right shoulder joint, initial encounter (principal); S70.01XA Contusion of right hip, initial encounter; S63.501A Unspecified sprain of right wrist, initial encounter; W07.XXXA Fall from chair, initial encounter; Y93.H2 Activity, gardening and landscaping; Y92.007 Garden or yard of unspecified non-institutional (private) residence as the place of occurrence of the external cause; I10 Essential (primary) hypertension
CPT/HCPCS: 73030; 73110; 73502; 96372; 99284; A9270; J1170

== ENCOUNTER 2021-02-19 12:35 | Outpatient (CLI) | payer MEDICARE, MEDICAID ==
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
== END 2021-02-19 12:36 | disposition home or self-care (01) ==
LOC: DI.N 12:35
PROVIDERS: ATTEND Internal Medicine
DX: M19.072 Primary osteoarthritis, left ankle and foot (principal); M19.071 Primary osteoarthritis, right ankle and foot

== ENCOUNTER 2021-11-09 09:28 | Outpatient (CLI) | payer MEDICARE, MEDICAID ==
[2021-11-09 11:41] LABS: BASOPHILS % (AUTO) 0.5 %; EOSINOPHILS # (AUTO) 0.1 10^3/uL (0.0-0.7); EOSINOPHILS % (AUTO) 1.6 %; HCT - HEMATOCRIT 41.2 % (37.0-47.0); HGB - HEMOGLOBIN 12.6 g/dL (12.0-16.0); LYMPHOCYTES % (AUTO) 34.6 %; MEAN CORPUSCULAR HGB CONC 30.6 g/dL (32.0-36.0); MEAN CORPUSCULAR VOLUME 91.6 fL (81.0-99.0); MEAN PLATELET VOLUME 8.5 fL (7.9-10.8); MONOCYTES # (AUTO) 0.6 10^3/uL (0.0-1.0); NEUTROPHILS # (AUTO) 4.8 10^3/uL (1.5-6.6); NEUTROPHILS % (AUTO) 55.8 %; PLT - PLATELET COUNT 353 10^3/uL (130-450); RED CELL DISTRIBUTION WIDTH 16.5 % (12.0-15.0); WHITE BLOOD COUNT 8.5 x10^3/uL (4.8-10.8)
[2021-11-09 12:12] LABS: ALBUMIN 4.1 g/dL (3.2-5.5); ALBUMIN/GLOBULIN RATIO 1.3 (1.0-2.2); ALKALINE PHOSPHATASE 87 IU/L (42-121); ALT ALANINE AMINOTRANSFERASE 25 IU/L (10-60); AST ASPARTATE AMINOTRANSFERASE 20 IU/L (10-42); BILIRUBIN,TOTAL 0.8 mg/dL (0.2-1.0); BUN - BLOOD UREA NITROGEN 14 mg/dL (6-20); CALCIUM 9.4 mg/dL (8.5-10.3); CARBON DIOXIDE - CO2 28 mmol/L (21-32); CHLORIDE 102 mmol/L (101-111); CHOL/HDL RATIO 4.4 (<4.4); CHOLESTEROL 231 mg/dL; GFR - MDRD 55 (>89); GLUCOSE 102 mg/dL (70-100); HDL CHOLESTEROL 53 mg/dL; LDL CHOLESTEROL,CALCULATED 139 mg/dL; LDL/HDL RATIO 2.6 (<4.4); POTASSIUM 4.3 mmol/L (3.5-5.0); SODIUM 139 mmol/L (135-145); TOTAL PROTEIN 7.2 g/dL (6.7-8.2); TRIGLYCERIDES 193 mg/dL; VLDL CHOLESTEROL 39 mg/dL
[2021-11-09 12:13] LABS: ESTIMATED AVERAGE GLUCOSE 128 mg/dL (70-100); HEMOGLOBIN A1c% 6.1 % (4.27-6.07)
[2021-11-09 12:18] LABS: THYROID STIMULATING HORMONE 3.43 uIU/mL (0.34-5.60)
== END 2021-11-09 09:29 | disposition home or self-care (01) ==
LOC: LAB.N 09:28
PROVIDERS: ATTEND Internal Medicine
DX: Z02.89 Encounter for other administrative examinations (principal); I10 Essential (primary) hypertension; E03.9 Hypothyroidism, unspecified
CPT/HCPCS: 36415; 80053; 80061; 83036; 83721; 84443; 85025

== ENCOUNTER 2022-01-18 11:26 | Outpatient (CLI) | payer MEDICARE, MEDICAID ==
[2022-01-18 20:11] LABS: BILIRUBIN,URINE NEGATIVE (NEGATIVE); GLUCOSE, URINE (UA) NEGATIVE (NEGATIVE); KETONES,URINE (UA) NEGATIVE (NEGATIVE); LEUKOCYTE ESTERASE, URINE MODERATE (NEGATIVE); NITRITE,URINE NEGATIVE (NEGATIVE); OCCULT BLOOD,URINE NEGATIVE (NEGATIVE); PROTEIN,URINE NEGATIVE (NEGATIVE); UROBILINOGEN,URINE 0.2 (NORMAL) E.U./dL (NORMAL)
[2022-01-18 20:26] LABS: CLARITY,URINE CLEAR (CLEAR)
[2022-01-18 20:27] LABS: BACTERIA,URINE Few /HPF (None Seen); CRYSTALS,URINE 11-25 Ca Oxalate /LPF; RBC,URINE 0-5 /HPF (0-5); SQUAMOUS EPITHELIAL CELL,UR MANY Squamous (<= Few)
== END 2022-01-18 11:27 | disposition home or self-care (01) ==
LOC: LAB.N 11:26
PROVIDERS: ATTEND Internal Medicine
DX: R32 Unspecified urinary incontinence (principal)
CPT/HCPCS: 81001; 87086

== ENCOUNTER 2022-06-28 09:25 | Emergency (ER) | payer MEDICARE, MEDICAID ==
[2022-06-28] MEDS ORDERED: HYDROcod/ACETAM 5/325 MG TABLET PO STA (09:37)
[2022-06-28 09:39] VITALS: BP 136/102
--- NOTE | 2022-06-28 09:41 | ED Physician Documentation ---
PD HPI FOCAL NEURO - Stated complaint Stated Complaint: STROKE SYMPTOMS - History obtained from History obtained from: Patient, Caregiver - Additional information Additional information: 66-year-old woman with history of morbid obesity, hypertension, asthma, COPD, TIA, peripheral neuropathy, hypothyroidism, GERD, depression, anxiety, PTSD, urinary incontinence, fibromyalgia, osteoporosis presents with what she is concerned may represent a stroke. For the last week and a half she has had intermittent left temporal pain with blurry vision. It is present now and woke her up from sleep this morning at 5 AM. Its associate with 3 days worth of fatigue. She denies chest pain or trouble breathing. She denies slurred speech, word finding difficulties, weakness, numbness, or tingling of any extremity. Review of Systems Constitutional: denies: Fever, Chills Eyes: reports: Loss of vision, Decreased vision. 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: Fibroids, Other : Incontinence HEENT: Chronic vision loss Psych: Depression, Anxiety, Panic attacks, Post traumatic stress disorder, Claustrophobia Musculoskeletal: Osteoarthritis, Fibromyalgia, Osteoporosis, Osteopenia, Fatigue, Chronic back pain Derm: Other drug resistant infections, Other - Past Surgical History Past Surgical History: Yes General: Cholecystectomy, Colonoscopy /SEW ON OPERATOR: section, 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 Derm: Skin cancer surgery - Present Medications Home Medications: Ambulatory Orders Medication Instructions Recorded Confirmed Metoprolol Tartrate 25 mg PO BID 12/27/16 08/14/20 Levothyroxine Sodium 125 mcg PO DAILY #30 tablet 06/21/17 08/14/20 Albuterol Sulfate [Proair Hfa 1 - 2 puffs INH Q4H PRN 03/06/20 08/14/20 Inhaler] Gabapentin [Neurontin] 600 mg PO TID 03/06/20 08/14/20 Hydrocortisone 10 mg PO BID 03/06/20 08/14/20 Ipratropium [Atrovent] 1 puffs INH Q6H 03/06/20 08/14/20 Lamotrigine [Lamotrigine ER] 200 mg PO DAILY 03/06/20 08/14/20 Meloxicam 15 mg PO DAILY 03/06/20 08/14/20 Pantoprazole [Protonix] 40 mg PO DAILY 03/06/20 08/14/20 Prazosin HCl 5 mg PO DAILY 03/06/20 08/14/20 Sucralfate 1 gm PO ACHS 03/06/20 08/14/20 Trazodone HCl 100 mg PO DAILY 03/06/20 08/14/20 Venlafaxine HCl [Effexor Xr] 150 mg PO DAILY 03/06/20 08/14/20 Verapamil HCl [Verapamil ER] 120 mg PO DAILY 03/06/20 08/14/20 risperiDONE [Risperdal] 0.5 mg PO DAILY 03/06/20 08/14/20 Ondansetron Odt [Zofran Odt] 4 mg TL Q6H PRN #10 tablet 03/10/20 08/14/20 Azithromycin [Zithromax] 0 mg PO DAILY #6 tablet 05/20/20 08/14/20 oxyCODONE [Roxicodone] 5 mg PO Q4-6H PRN #12 tablet 01/12/21 HYDROcod/ACETAM 5/325 [[place] 5/325] 1 - 2 tab PO Q6H PRN #15 tablet 06/28/22 predniSONE [Deltasone] 20 mg PO [id number] #21 tab 06/28/22 - Allergies Allergies/Adverse Reactions: Allergies Allergy/AdvReac Type Severity Reaction Status Date / Time bee venom protein (honey bee) Allergy Unknown Verified 06/28/22 09:39 pregabalin [From Lyrica] AdvReac Hallucinati Verified 06/28/22 09:39 ons - Social History Does the pt smoke?: No Smoking Status: Never smoker Does the pt drink ETOH?: No Does the pt have substance abuse?: No - Immunizations Immunizations are current?: Yes Immunizations: Other immun not current - POLST Patient has POLST: No POLST Status: NO blood products due to latter-day. PD ED PE NORMAL - Vitals Vital signs reviewed: Yes - General General: Alert and oriented X 3, No acute distress - HEENT HEENT: PERRL (Sequela of prior cataract repair bilaterally), EOMI, Other (Tender left temporal artery) - Neck Neck: Supple, no meningeal sign, No bony TTP, No bruit - Cardiac Cardiac: RRR, No murmur - Respiratory Respiratory: No respiratory distress, Clear bilaterally - Abdomen Abdomen: Non tender - Back Back: No CVA TTP, No spinal TTP - Derm Derm: Normal color, Warm and dry - Extremities Extremities: No edema, No calf tenderness / cord - Neuro Neuro: Alert and oriented X 3, Normal speech Eye Opening: Spontaneous Motor: Obeys Commands Verbal: Oriented GCS Score: 15 - Psych Psych: Normal mood, Normal affect NIHSS - Time Time: 09:40 - Level of Consciousness Level of consciousness: (0) Alert, Keenly responsive LOC Questions: (0) Answers both Q's correct LOC Commands: (0) Performs both correctly - Gaze Best Gaze: (0) Normal - Visual Visual: (0) No loss - Facial Palsy Facial Palsy: (0) Normal, symmetrical movement - Motor Arms (both separate) Motor Arm (right): (0) No drift Motor Arm (left): (0) No drift - Motor Legs (both separate) Motor Leg (right): (0) No drift Motor Leg (left): (0) No drift - Limb Ataxia Limb Ataxia: (0) Absent - Sensory Sensory: (0) Normal - Best Language Best Language: (0) No aphasia - Dysarthria Dysarthria: (0) Normal - Extinction and Inattention (formally neg Extinction and inattention: (0) No abnormality - Total Score/Results Total Score/Result: 0 Results - Vitals Vitals: Vital Signs - 24 hr 06/28/22 06/28/22 09:34 10:05 Temperature 37.0 C Heart Rate 71 65 Respiratory 28 H 17 Rate Blood Pressure 136/102 H O2 Saturation 99 99 Oxygen O2 Source Room air - Labs Labs: Laboratory Tests 06/28/22 06/28/22 06/28/22 09:39 09:39 09:39 WBC 12.9 H RBC 4.19 L Hgb 11.6 L Hct 38.9 MCV 92.8 MCH 27.7 MCHC 29.8 L RDW 16.8 H Plt Count 284 MPV 8.1 Neut # (Auto) 8.8 H Lymph # (Auto) 3.0 [place] # (Auto) 0.8 Eos # (Auto) 0.1 Baso # (Auto) 0.0 Absolute Nucleated RBC 0.00 Nucleated RBC % 0.0 ESR 43 H Sodium 136 Potassium 4.4 Chloride 99 L Carbon Dioxide 30 Anion Gap 7.0 BUN 14 Creatinine 0.8 Estimated GFR (MDRD) 72 L Glucose 101 H Calcium 8.5 C-Reactive Protein 1.6 H PD Medical Decision Making - ED course ED course: 66-year-old woman presents with what she is concerned may represent a stroke, but her actual symptoms are intermittent left temporal headache with blurry vision and no actual strokelike symptoms that I can ascertain and no findings of stroke on exam. To me her symptoms are more reminiscent of temporal arteritis and will screen for same with ESR/CRP. Her ESR and CRP are elevated, CT scan of the head interpreted independently by me but also the formal read was reviewed showing no acute abnormalities, old left caudate lacunar infarct, and mild cerebral volume loss and microvascular ischemic changes. Her CBC shows mild leukocytosis of unclear etiology and chemistry panel is unremarkable. These results are consistent with temporal arteritis and she will be started on prednisone pending follow-up with both surgery and/or ophthalmology. Discussed need for follow-up for consideration for temporal artery biopsy. Departure - Departure Disposition: Home, Self Care Clinical Impression: Temporal arteritis Condition: Good Record reviewed to determine appropriate education?: Yes Instructions: ED Arteritis Temporal Follow-Up: Walter Kimble MD [Provider Admit Priv/Credential] - Surgical Care [Provider Group] Prescriptions: predniSONE [Deltasone] 20 mg PO [id number] #21 tab HYDROcod/ACETAM 5/325 [[place] 5/325] 1 - 2 tab PO Q6H PRN #15 tablet PRN Reason: Pain Comments: You were seen today for temporal pain and blurry vision. You have elevated inflammatory markers and your blood, so I suspect this may be what is known as temporal arteritis. The CAT scan of your head was unremarkable except for an old small stroke and age-related changes. We are starting you on prednisone, but you will need to follow-up with an beam dyer recessed vat or surgeon for consideration for temporal artery biopsy the phone number of our general surgery clinic and a local beam dyer recessed vat is on this form. I would recommend calling both tomorrow to see who you can get in faster with for a biopsy. In the meantime we will treat with prednisone. I sent your prescriptions electronically to [facility] in [place]. I am prescribing a short course of narcotic pain medication for you. These are potentially dangerous and addictive medications that should be used carefully. These medications may constipate you. Take an exyw-reu-oshnqnl stool softener (docusate) twice daily with plenty of water while taking these medications. If you go 24 hours without a bowel movement, take nqre-ujs-hsgzksb miralax, per package instructions. Do not drink or drive while taking these medications. If you received narcotic or sedating medications while in the emergency department, do not drive for 24 hours. Store this medication in a safe, secure place and out of reach of children. It is a violation of federal law to give or sell this medication to another person or to use in a manner other than prescribed. The ED will not refill narcotic prescriptions, including prescriptions lost or stolen. To dispose of unwanted medications: 1. [facility] at [address] in [place] has a medication drop box. They accept prescription medications (in pill form) Tuesday through Tuesday 9:00 a.m. to 5:00 p.m. 2. [facility] accepts prescription medications (in pill form only) for disposal year round. Call for more information. 3. Contact the [facility] for the next [facility] sponsored prescription drug collection event. , [phone], or [phone]; Note that many narcotic pain relievers also contain Tylenol/acetaminophen. Pl ease ensure that your total dose of acetaminophen from all sources does not exceed 3 g (3000 mg) per day.
[2022-06-28 09:45] LABS: BASOPHILS % (AUTO) 0.3 %; EOSINOPHILS # (AUTO) 0.1 10^3/uL (0.0-0.7); EOSINOPHILS % (AUTO) 0.9 %; HCT - HEMATOCRIT 38.9 % (37.0-47.0); HGB - HEMOGLOBIN 11.6 g/dL (12.0-16.0); LYMPHOCYTES % (AUTO) 23.6 %; MEAN CORPUSCULAR HEMOGLOBIN 27.7 pg (27.0-31.0); MEAN CORPUSCULAR HGB CONC 29.8 g/dL (32.0-36.0); MEAN CORPUSCULAR VOLUME 92.8 fL (81.0-99.0); MEAN PLATELET VOLUME 8.1 fL (7.9-10.8); MONOCYTES # (AUTO) 0.8 10^3/uL (0.0-1.0); NEUTROPHILS # (AUTO) 8.8 10^3/uL (1.5-6.6); NEUTROPHILS % (AUTO) 68.2 %; PLT - PLATELET COUNT 284 10^3/uL (130-450); RED BLOOD COUNT 4.19 10^6/uL (4.20-5.40); RED CELL DISTRIBUTION WIDTH 16.8 % (12.0-15.0); WHITE BLOOD COUNT 12.9 x10^3/uL (4.8-10.8)
[2022-06-28 10:04] LABS: CALCIUM 8.5 mg/dL (8.5-10.3); CREATININE 0.8 mg/dL (0.4-1.0); CRP - C-REACTIVE PROTEIN 1.6 mg/dL (0-1.0); POTASSIUM 4.4 mmol/L (3.5-5.0)
--- NOTE | 2022-06-28 10:20 | CT Report ---
PROCEDURE: HEAD WO INDICATIONS: l HEADACHE TECHNIQUE: Noncontrast 4.5 mm thick angled axial sections acquired from the foramen magnum to the vertex. For r adiation dose reduction, the following was used: automated exposure control, adjustment of mA and/or kV according to patient size. COMPARISON: CT head without, 06/25/2019. FINDINGS: Image quality: Excellent. CSF spaces: Basal cisterns are patent. No extra-axial fluid collections. Ventricles are normal in size and shape. Brain: No midline shift. No intracranial masses or hemorrhage. There is an old lacunar infarct in t he left caudate, new since the last exam. Mild cerebral volume loss and periventricular white matter chronic small vessel ischemic changes. Skull and face: Calvarium and visualized facial bones are intact, without suspicious lesions. Hypero stosis frontalis. Sinuses: Visualized sinuses and mastoids are clear. IMPRESSION: 1. No acute intracranial abnormalities. 2. Old lacunar infarct in left caudate. 3. Mild cerebral volume loss and periventricular white matter microvascular ischemic changes. Reviewed by: Warren Shah MD on 06/28/2022 10:19 AM PST Approved by: Warren Shah MD on 06/28/2022 10:19 AM PST Station ID: [id number]
== END 2022-06-28 11:01 | disposition home or self-care (01) ==
LOC: ED 09:25
DX: M31.6 Other giant cell arteritis (principal); I10 Essential (primary) hypertension
CPT/HCPCS: 36415; 70450; 80048; 85025; 85651; 86140; 99284; A9270

== ENCOUNTER 2022-08-07 09:44 | Emergency (ER) | payer MEDICARE, MEDICAID ==
[2022-08-07 11:59] LABS: BASOPHILS % (AUTO) 0.4 %; EOSINOPHILS # (AUTO) 0.1 10^3/uL (0.0-0.7); EOSINOPHILS % (AUTO) 0.9 %; HCT - HEMATOCRIT 39.1 % (37.0-47.0); HGB - HEMOGLOBIN 11.8 g/dL (12.0-16.0); LYMPHOCYTES # (AUTO) 2.4 10^3/uL (1.5-3.5); LYMPHOCYTES % (AUTO) 23.5 %; MEAN CORPUSCULAR HEMOGLOBIN 27.9 pg (27.0-31.0); MEAN CORPUSCULAR HGB CONC 30.2 g/dL (32.0-36.0); MEAN CORPUSCULAR VOLUME 92.4 fL (81.0-99.0); MEAN PLATELET VOLUME 8.2 fL (7.9-10.8); MONOCYTES # (AUTO) 0.7 10^3/uL (0.0-1.0); MONOCYTES % (AUTO) 6.5 %; NEUTROPHILS % (AUTO) 68.2 %; PLT - PLATELET COUNT 244 10^3/uL (130-450); RED BLOOD COUNT 4.23 10^6/uL (4.20-5.40); RED CELL DISTRIBUTION WIDTH 16.4 % (12.0-15.0); WHITE BLOOD COUNT 10.3 x10^3/uL (4.8-10.8)
[2022-08-07 12:02] VITALS: BP 148/76
--- NOTE | 2022-08-07 12:13 | ED Physician Documentation ---
History of Present Illness - Stated complaint Stated Complaint: R FOOT SWOLLEN/PX - Chief complaint Chief Complaint: Ext Problem - History obtained from History obtained from: Patient, EMS - History of Present Illness Timing: Today - Additonal information Additional information: 66-year-old female presents to the emergency department stating that she noticed that both of her legs were swollen this morning. She states that they appeared red. She called 911 and had a EMS bring her to the emergency department. By the time she arrived in the emergency department the swelling had resolved and the redness had resolved. No fevers. No chills. She does complain of sinus congestion and increasing pain over the past 2 weeks. Has had sinus infections in the past that feels similar. Has a mild cough. No difficulty breathing. No nausea or vomiting. No abdominal pain. No chest pain. The swelling in the legs is worse with standing and sitting, better with lying flat and elevating her legs. 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: Fibroids, Other : Incontinence HEENT: Chronic vision loss Psych: Depression, Anxiety, Panic attacks, Post traumatic stress disorder, Claustrophobia Musculoskeletal: Osteoarthritis, Fibromyalgia, Osteoporosis, Osteopenia, Fatigue, Chronic back pain Derm: Other drug resistant infections, Other - Past Surgical History Past Surgical History: Yes General: Cholecystectomy, Colonoscopy /FBI SHARPSHOOTER: section, 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, Oophrectomy Derm: Skin cancer surgery - Present Medications Home Medications: Ambulatory Orders Medication Instructions Recorded Confirmed Metoprolol Tartrate 25 mg PO BID 12/27/16 08/07/22 Levothyroxine Sodium 125 mcg PO DAILY #30 tablet 06/21/17 08/07/22 Albuterol Sulfate [Proair Hfa 1 - 2 puffs INH Q4H PRN 03/06/20 08/07/22 Inhaler] Gabapentin [Neurontin] 600 mg PO TID 03/06/20 08/07/22 Hydrocortisone 10 mg PO BID 03/06/20 08/14/20 Ipratropium [Atrovent] 1 puffs INH Q6H 03/06/20 08/07/22 Lamotrigine [Lamotrigine ER] 200 mg PO DAILY 03/06/20 08/07/22 Meloxicam 15 mg PO DAILY 03/06/20 08/14/20 Pantoprazole [Protonix] 40 mg PO DAILY 03/06/20 08/14/20 Prazosin HCl 5 mg PO DAILY 03/06/20 08/07/22 Sucralfate 1 gm PO ACHS 03/06/20 08/14/20 Trazodone HCl 100 mg PO HS 03/06/20 08/07/22 Venlafaxine HCl [Effexor Xr] 150 mg PO DAILY 03/06/20 08/07/22 Verapamil HCl [Verapamil ER] 120 mg PO DAILY 03/06/20 08/07/22 risperiDONE [Risperdal] 0.5 mg PO DAILY 03/06/20 08/14/20 HYDROcod/ACETAM 5/325 [[place] 5/325] 1 - 2 tab PO Q6H PRN #15 tablet 06/28/22 Amox/Clav 875/125 [Augmentin] 1 tab PO Q12H #20 tablet 08/07/22 - Allergies Allergies/Adverse Reactions: Allergies Allergy/AdvReac Type Severity Reaction Status Date / Time bee venom protein (honey bee) Allergy Unknown Verified 08/07/22 09:56 pregabalin [From Lyrica] AdvReac Hallucinati Verified 08/07/22 09:56 ons - Social History Does the pt smoke?: No Smoking Status: Never smoker Does the pt drink ETOH?: No Does the pt have substance abuse?: No - Immunizations Immunizations are current?: Yes Immunizations: Other immun not current - POLST Patient has POLST: No POLST Status: NO blood products due to episcopalian. PD ED PE NORMAL - Vitals Vital signs reviewed: Yes - General General: Alert and oriented X 3, No acute distress - HEENT HEENT: PERRL, Ears normal, Moist mucous membranes, Pharynx benign, Other (Tender to palpation over the bilateral frontal and maxillary sinuses. Inflammation inside the nose as well on exam.) - Neck Neck: Supple, no meningeal sign - Cardiac Cardiac: RRR - Respiratory Respiratory: No respiratory distress, Clear bilaterally - Abdomen Abdomen: Soft, Non tender, Non distended - Derm Derm: Warm and dry - Extremities Extremities: No edema, No calf tenderness / cord - Neuro Neuro: Alert and oriented X 3 - Psych Psych: Normal mood, Normal affect Results - Vitals Vitals: Vital Signs - 24 hr 08/07/22 08/07/22 08/07/22 09:51 10:42 12:01 Temperature 37.1 C Heart Rate 70 71 67 Respiratory 24 22 18 Rate Blood Pressure 148/84 H 110/63 148/76 H O2 Saturation 96 98 97 If not protocol 2 2 : Oxygen Flow, liters/minute Oxygen O2 Source Nasal cannula - EKG (time done) 1008 Rate: Rate (enter#) (71) Rhythm: NSR [place]: Normal Intervals: Normal CO QRS: Normal, LVH Ischemia: Normal ST segments - Labs Labs: Laboratory Tests 08/07/22 08/07/22 08/07/22 11:54 11:54 11:54 WBC 10.3 RBC 4.23 Hgb 11.8 L Hct 39.1 MCV 92.4 MCH 27.9 MCHC 30.2 L RDW 16.4 H Plt Count 244 MPV 8.2 Neut # (Auto) 7.0 H Lymph # (Auto) 2.4 [place] # (Auto) 0.7 Eos # (Auto) 0.1 Baso # (Auto) 0.0 Absolute Nucleated RBC 0.00 Nucleated RBC % 0.0 Sodium 139 Potassium 4.6 Chloride 100 L Carbon Dioxide 30 Anion Gap 9.0 BUN 14 Creatinine 0.9 Estimated GFR (MDRD) 62 L Glucose 114 H Calcium 9.2 Total Bilirubin 0.7 AST 19 ALT 25 Alkaline Phosphatase 79 Troponin I High Sens 5.0 B-Natriuretic Peptide Total Protein 6.6 L Albumin 3.4 Globulin 3.2 Albumin/Globulin Ratio 1.1 Lipase 36 08/07/22 11:54 WBC RBC Hgb Hct MCV MCH MCHC RDW Plt Count MPV Neut # (Auto) Lymph # (Auto) [place] # (Auto) Eos # (Auto) Baso # (Auto) Absolute Nucleated RBC Nucleated RBC % Sodium Potassium Chloride Carbon Dioxide Anion Gap BUN Creatinine Estimated GFR (MDRD) Glucose Calcium Total Bilirubin AST ALT Alkaline Phosphatase Troponin I High Sens B-Natriuretic Peptide 33 Total Protein Albumin Globulin Albumin/Globulin Ratio Lipase - Rads (name of study) Chest x-ray Radiology: Final report received, See rad report PD Medical Decision Making - ED course Complexity details: reviewed results, re-evaluated patient, considered differential, d/w patient ED course: Patient with what sounds like dependent peripheral edema, this resolved prior to arrival with elevation of the legs. She also appears to have a sinus infection, we will place her on antibiotics for this. Patient is well-appearing, nontoxic. Afebrile. No hypoxia. No respiratory distress. No acute findings on chest x- ray, EKG, laboratory testing. CBC does not show any significant abnormalities nor does the CMP. High sensitive troponin is negative. BNP is negative. Patient counseled regarding signs and symptoms for which I believe and urgent r e-evaluation would be necessary. Patient with good understanding of and agreement to plan and is comfortable going home at this time This document was made in part using voice recognition software. While efforts are made to proofread this document, sound alike and grammatical errors may occur. Departure - Departure Disposition: 01 Home, Self Care Clinical Impression: Peripheral edema Sinus infection Qualifiers: Sinusitis location: unspecified location Chronicity: acute Recurrence: non- recurrent Qualified Code(s): J01.90 - Acute sinusitis, unspecified Condition: Good Instructions: ED Edema Legs Bilateral, ED Sinusitis Abx Tx Follow-Up: Vignesh Silver MD [Primary Care Provider] - Prescriptions: Amox/Clav 875/125 [Augmentin] 1 tab PO Q12H #20 tablet Comments: Please take all antibiotics until gone. Please return if you worsen. Your pr escriptions were sent to [facility] in [place]. You were given the first dose of the antibiotic today. Please continue to elevate your legs at home. Your laboratory testing, EKG, chest x-ray did not show any significant abnormalities at this time. Discharge Date/Time: 08/07/22 12:53
[2022-08-07 12:15] LABS: ALBUMIN 3.4 g/dL (3.2-5.5); ALBUMIN/GLOBULIN RATIO 1.1 (1.0-2.2); BILIRUBIN,TOTAL 0.7 mg/dL (0.2-1.0); CALCIUM 9.2 mg/dL (8.5-10.3); CREATININE 0.9 mg/dL (0.4-1.0); POTASSIUM 4.6 mmol/L (3.5-5.0); TOTAL PROTEIN 6.6 g/dL (6.7-8.2)
[2022-08-07] MEDS ORDERED: AMOX/CLAV 875 MG/125 MG TABLET PO STA (12:25)
--- NOTE | 2022-08-07 12:25 | XRAY Report ---
PROCEDURE: Chest 1 View X-Ray INDICATIONS: Chest Pain TECHNIQUE: One view of the chest was acquired. COMPARISON: 01/26/2022 FINDINGS: Surgical changes and devices: None. Lungs and pleura: An incomplete inspiratory result is noted, with low lung volumes and crowding of t he vascular markings. No focal infiltrates are seen. No large pneumothorax or large pleural effusion can be seen. Mediastinum: Mediastinal contours appear normal. Heart size is normal. Bones and chest wall: No suspicious bony lesions. Overlying soft tissues appear unremarkable. IMPRESSION: Portable chest within normal limits for age. Reviewed by: Hreminio Chase MD on 08/07/2022 11:23 AM [facility] Approved by: Herminio Chase MD on 08/07/2022 11:23 AM [facility] Station ID: [id number]
== END 2022-08-07 12:53 | disposition home or self-care (01) ==
LOC: ED 09:44
DX: R60.0 Localized edema (principal); J01.90 Acute sinusitis, unspecified
CPT/HCPCS: 36415; 71045; 80053; 83690; 83880; 84484; 85025; 93005; 99284; A9270

== ENCOUNTER 2022-08-11 10:09 | Outpatient (CLI) | payer MEDICARE, MEDICAID | END 2022-08-11 10:29 | disposition left against medical advice (07) | LOC: EMS 10:09 | DX: R53.1 Weakness (principal) ==

== ENCOUNTER 2022-08-11 11:47 | Outpatient (CLI) | payer MEDICARE, MEDICAID | END 2022-08-11 23:59 | disposition critical access hospital (66) | LOC: EMS 11:47 | DX: R53.1 Weakness (principal); R26.2 Difficulty in walking, not elsewhere classified | CPT/HCPCS: A0425; A0429 ==

== ENCOUNTER 2022-08-11 12:06 | Emergency (ER) | payer MEDICARE, MEDICAID ==
[2022-08-11 12:19] VITALS: BP 137/98
--- NOTE | 2022-08-11 13:15 | XRAY Report ---
PROCEDURE: Hand 3 View RT INDICATIONS: fall/injury/pain TECHNIQUE: 3 views of the hand(s) acquired. COMPARISON: None FINDINGS: Bones: No fractures or dislocations. No suspicious bony lesions. Interphalangeal and first [facility] [place] nt space narrowing and associated osteophytosis; this is within normal limits for age. Soft tissues: No suspicious soft tissue calcifications. IMPRESSION: No acute bony abnormality. Reviewed by: Stevie Hernandez on 08/11/2022 1:14 PM PST Approved by: Stevie Hernandez on 08/11/2022 1:14 PM PST Station ID: [id number]
--- NOTE | 2022-08-11 13:23 | CT Report ---
PROCEDURE: HEAD WO INDICATIONS: fall/injury/pain TECHNIQUE: Noncontrast 4.5 mm thick angled axial sections acquired from the foramen magnum to the vertex. For r adiation dose reduction, the following was used: automated exposure control, adjustment of mA and/or kV according to patient size. COMPARISON: 06/28/2022. FINDINGS: Image quality: Excellent. CSF spaces: Basal cisterns are patent. No extra-axial fluid collections. Ventricles are normal in size and shape. Brain: No midline shift. No intracranial masses or hemorrhage. Bass-white matter interface is norm al. Age-related volume loss and mild small vessel ischemic change. Old left head of caudate lacunar infarction. Skull and face: Calvarium and visualized facial bones are intact, without suspicious lesions. Sinuses: Visualized sinuses and mastoids are clear. IMPRESSION: 1. Age-related volume loss, small vessel ischemic change, old lacunar infarction. 2. No evidence acute intracranial process. Reviewed by: Brandon Yen MD on 08/11/2022 1:21 PM PST Approved by: Brandon Yen MD on 08/11/2022 1:21 PM PST Station ID: [id number]
--- NOTE | 2022-08-11 13:28 | CT Report ---
PROCEDURE: CERVICAL SPINE WO INDICATIONS: fall/pain TECHNIQUE: Noncontrast 3 mm thick sections acquired from the skull base to the T4 level. Sagittal and coronal r eformats were then constructed. For radiation dose reduction, the following was used: automated exp osure control, adjustment of mA and/or kV according to patient size. COMPARISON: Cervical spine plain films dated 08/17/2019. FINDINGS: Image quality: Excellent. Bones: No fractures or dislocations. Visualized superior ribs are intact. Mild anterolisthesis of C2 on C3 measuring 2 mm and anterolisthesis of C3 on C4, measuring approximately 3 mm, is similar to the previous plain films. There is bilateral facet arthropathy at these levels. There is reversal of the normal lordotic curve of the cervical spine, chronically present. Diffuse cervical spondylitic ch dale. Canal stenosis at C5-C6. Multilevel left-sided bony foraminal narrowing. Soft tissues: Prevertebral soft tissues are normal in thickness. No paravertebral hematomas. No ap ical pneumothoraces. IMPRESSION: 1. Cervical spondylitic change. 2. Mild anterolisthesis of C2 on C3 and of C3 on C4 is felt to be chronically present, secondary to f acet arthropathy. 3. No evidence of acute fracture or dislocation of the cervical spine. Reviewed by: Brandon Yen MD on 08/11/2022 1:27 PM PST Approved by: Brandon Yen MD on 08/11/2022 1:27 PM PST Station ID: [id number]
--- NOTE | 2022-08-11 13:41 | ED Physician Documentation ---
History of Present Illness - Stated complaint Stated Complaint: WEAKNESS/GLF - Chief complaint Chief Complaint: Trauma Hd/Nk - History obtained from History obtained from: Patient, EMS - Additonal information Additional information: The patient is brought into the emergency department by EMS for chief complaint of body pain after fall. She states she was walking in her house and had a ground-level fall onto a hard surface floor with overlying thin rug. She states that she fell onto her right hip but does not really feel like its hurt much. She hit the back of her head and states that she has some pain at the back of her head that shooting down into her neck. She also complains of pain in her right ring and small fingers. She denies any rib pain. No abdominal pain. She was just seen here couple of nights ago for Millicent edema and had extensive work- up including EKG and multiple laboratory studies. Review of records reveals that she had a normal BNP and kidney function. She states that she has been told she should wear some compression hose, but that she finds that it is only the top of the compression hose that apply any pressure to her leg. She does not really wish to wear the hose. She states she has been propping her legs up and her caregiver, who comes in 5 days a week, rubs her legs with oil which also helps with the swelling and discomfort. The patient denies any shortness of breath. She states the main reason she is here is because the body pain. No other complaints at this time. 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, Other : Incontinence HEENT: Chronic vision loss Psych: Depression, Anxiety, Panic attacks, Post traumatic stress disorder, Claustrophobia Musculoskeletal: Osteoarthritis, Fibromyalgia, Osteoporosis, Osteopenia, Fatigue, Chronic back pain Derm: Other drug resistant infections, Other - Past Surgical History Past Surgical History: Yes General: Cholecystectomy, Colonoscopy /FRONT OFFICE SECRETARY: section, 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, Oophrectomy Derm: Skin cancer surgery - Present Medications Home Medications: Ambulatory Orders Medication Instructions Recorded Confirmed Metoprolol Tartrate 25 mg PO BID 12/27/16 08/07/22 Levothyroxine Sodium 125 mcg PO DAILY #30 tablet 06/21/17 08/07/22 Albuterol Sulfate [Proair Hfa 1 - 2 puffs INH Q4H PRN 03/06/20 08/07/22 Inhaler] Gabapentin [Neurontin] 600 mg PO TID 03/06/20 08/07/22 Hydrocortisone 10 mg PO BID 03/06/20 08/14/20 Ipratropium [Atrovent] 1 puffs INH Q6H 03/06/20 08/07/22 Lamotrigine [Lamotrigine ER] 200 mg PO DAILY 03/06/20 08/07/22 Meloxicam 15 mg PO DAILY 03/06/20 08/14/20 Pantoprazole [Protonix] 40 mg PO DAILY 03/06/20 08/14/20 Prazosin HCl 5 mg PO DAILY 03/06/20 08/07/22 Sucralfate 1 gm PO ACHS 03/06/20 08/14/20 Trazodone HCl 100 mg PO HS 03/06/20 08/07/22 Venlafaxine HCl [Effexor Xr] 150 mg PO DAILY 03/06/20 08/07/22 Verapamil HCl [Verapamil ER] 120 mg PO DAILY 03/06/20 08/07/22 risperiDONE [Risperdal] 0.5 mg PO DAILY 03/06/20 08/14/20 HYDROcod/ACETAM 5/325 [[place] 5/325] 1 - 2 tab PO Q6H PRN #15 tablet 06/28/22 Amox/Clav 875/125 [Augmentin] 1 tab PO Q12H #20 tablet 08/07/22 - Allergies Allergies/Adverse Reactions: Allergies Allergy/AdvReac Type Severity Reaction Status Date / Time bee venom protein (honey bee) Allergy Unknown Verified 08/11/22 12:15 pregabalin [From Lyrica] AdvReac Hallucinati Verified 08/11/22 12:15 ons - Social History Does the pt smoke?: No Smoking Status: Never smoker Does the pt drink ETOH?: Yes Does the pt have substance abuse?: No - Immunizations Immunizations are current?: Yes Immunizations: Other immun not current - POLST Patient has POLST: No POLST Status: NO blood products due to gnosticist. PD ED PE NORMAL - Vitals Vital signs reviewed: Yes - General General: Alert and oriented X 3, No acute distress, Well developed/nourished, Other (Morbidly obese patient) - HEENT HEENT: Atraumatic, PERRL, EOMI, Moist mucous membranes - Neck Neck: Supple, no meningeal sign, Other (Mild tenderness C6-7 area, no step-off.) - Cardiac Cardiac: RRR, No murmur, Strong equal pulses - Respiratory Respiratory: No respiratory distress, Clear bilaterally - Abdomen Abdomen: Soft, Non tender, Other (Obese) - Derm Derm: Normal color, Warm and dry, No rash - Extremities Extremities: No deformity, Other (Right hand tenderness over fourth and fifth MCP joints and proximal phalanges. No deformity. No edema Of fingers; obese lower extremities with 1+ pitting edema bilaterally.) - Neuro Neuro: Alert and oriented X 3 - Psych Psych: Normal mood, Normal affect Results - Vitals Vitals: Vital Signs - 24 hr 08/11/22 12:15 Temperature 36.9 C Heart Rate 72 Respiratory 16 Rate Blood Pressure 137/98 H O2 Saturation 100 Oxygen O2 Source Nasal cannula - Rads (name of study) Head CT Radiology: Final report received, See rad report (No acute findings) CT cervical spine Radiology: Final report received, See rad report (No acute findings) Right hand x-ray series Radiology: Final report received, See rad report (Negative) PD Medical Decision Making - ED course Complexity details: reviewed results, re-evaluated patient, considered differential, d/w patient ED course: The patient was sent for x-ray of the right hand and CTs of the head and neck with no significant findings. I reviewed her old records and I discussed with her that she should consider using prescription grade compression hose. I am not sure, given her extreme obesity, as well as her normal kidney function and BNP, that there would be any usefulness in starting her on diuretics. We have discussed the need for follow-up and the usual indications for return. Departure - Departure Disposition: 01 Home, Self Care Clinical Impression: Ground-level fall, Dependent edema Closed head injury Qualifiers: Encounter type: initial encounter Qualified Code(s): S09.90XA - Unspecified injury of head, initial encounter Cervical strain Qualifiers: Encounter type: initial encounter Qualified Code(s): S16.1XXA - Strain of muscle, fascia and tendon at neck level, initial encounter Condition: Stable Instructions: ED Head Injury Closed, ED Sprain Strain Neck Comments: The x-ray series of your right hand and the CTs of your head and neck all look good. There is no evidence of a serious injury. I have reviewed your records from the other day when you were here, and both your kidney and congestive heart failure labs were normal. There is no emergent indication for starting you back on a water pill at this time, and you should talk to your doctor about whether this is still a good idea or not. It is recommended that you prop your feet up whenever you are sitting or laying down, and also, you should consider the use of compression stockings. The prescription grayed ones are the best, and even though they are quite tight, they can be rolled on and are quite effective. Please make the next available appointment to follow-up with your primary doctor. No further emergent intervention is indicated at this time.
== END 2022-08-11 14:30 | disposition home or self-care (01) ==
LOC: EDUNIT# → ED 12:06
DX: S09.90XA Unspecified injury of head, initial encounter (principal); S16.1XXA Strain of muscle, fascia and tendon at neck level, initial encounter; W18.30XA Fall on same level, unspecified, initial encounter; Y93.01 Activity, walking, marching and hiking; Y92.008 Other place in unspecified non-institutional (private) residence as the place of occurrence of the external cause; R60.9 Edema, unspecified; I10 Essential (primary) hypertension; I20.9 Angina pectoris, unspecified; J44.9 Chronic obstructive pulmonary disease, unspecified; E03.9 Hypothyroidism, unspecified; E66.01 Morbid (severe) obesity due to excess calories; Z79.899 Other long term (current) drug therapy; Z79.51 Long term (current) use of inhaled steroids
CPT/HCPCS: 99283; 99284

== ENCOUNTER 2022-10-23 08:37 | Outpatient (CLI) | payer MEDICARE, MEDICAID | END 2022-10-23 08:38 | disposition EMS.NT | LOC: EMS 08:37 | DX: S50.311A Abrasion of right elbow, initial encounter (principal); W01.0XXA Fall on same level from slipping, tripping and stumbling without subsequent striking against object, initial encounter; Y92.008 Other place in unspecified non-institutional (private) residence as the place of occurrence of the external cause ==

== ENCOUNTER 2023-04-28 08:00 | Outpatient (CLI) | payer MEDICARE, MEDICAID | END 2023-04-28 23:59 | disposition home or self-care (01) | LOC: LAB.N 08:00 | PROVIDERS: ATTEND Internal Medicine | DX: R05.9 Cough, unspecified (principal); Z20.822 Contact with and (suspected) exposure to COVID-19 | CPT/HCPCS: 87635 ==

== ENCOUNTER 2023-05-02 01:54 | Outpatient (CLI) | payer MEDICARE, MEDICAID | END 2023-05-02 01:55 | disposition EMS.NT | LOC: EMS 01:54 | DX: Z03.89 Encounter for observation for other suspected diseases and conditions ruled out (principal) ==

== ENCOUNTER 2023-05-02 16:49 | Emergency (ER) | payer MEDICARE, MEDICAID ==
--- NOTE | 2023-05-02 19:13 | ED Physician Documentation ---
PD HPI DYSPNEA - Stated complaint Stated Complaint: SOA - Chief complaint Chief Complaint: Resp - History obtained from History obtained from: Patient - Additional information Additional information: HPI from patient. Patient has multiple c/o, unclear which is her chief c/o / concern. 1) she says she fell this morning at approximately 1 AM. She thinks this was due to loss of balance. She hit her head but denies LOC; however, she does have bifrontal headache. Also c/o left shoulder pain and left hip pain as a result of the fall. Unclear why she waited until now to present to ED. She is able to we ight-bear but this exacerbates the left hip pain. The left shoulder pain is exacerbated with movement, palpation. does not take any blood-thinning medications. 2) c/o worsening dyspnea, dry cough x 3 weeks. Saw PMD for this 3 days ago and was prescribed augmentin and fluticasone, taking both as prescribed without improvement. 3) brief, episodic hallucinations today, manifesting as "like a veil or a bag being put over my head and eyes" (per patient), lasting less than a minute each time. Denies h/o same Review of Systems Constitutional: denies: Fever, Chills, Sweats Cardiac: reports: Reviewed and negative Respiratory: reports: Dyspnea, Cough. denies: Hemoptysis GI: reports: Reviewed and negative Musculoskeletal: reports: Joint pain Neurologic: reports: Headache, Head injury. denies: Generalized weakness, Focal weakness, Numbness, LOC Psychiatric: reports: Hallucinations. 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, Other : Incontinence HEENT: Chronic vision loss Psych: Depression, Anxiety, Panic attacks, Post traumatic stress disorder, Claustrophobia Musculoskeletal: Osteoarthritis, Fibromyalgia, Osteoporosis, Osteopenia, Fatigue, Chronic back pain Derm: Other drug resistant infections, Other - Past Surgical History Past Surgical History: Yes General: Cholecystectomy, Colonoscopy /FRUIT THINNER MACHINE OPERATOR: section, 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, Oophrectomy Derm: Skin cancer surgery - Present Medications Home Medications: Ambulatory Orders Medication Instructions Recorded Confirmed Metoprolol Tartrate 25 mg PO BID 12/27/16 08/07/22 Levothyroxine Sodium 125 mcg PO DAILY #30 tablet 06/21/17 08/07/22 Albuterol Sulfate [Proair Hfa 1 - 2 puffs INH Q4H PRN 03/06/20 08/07/22 Inhaler] Gabapentin [Neurontin] 600 mg PO TID 03/06/20 08/07/22 Hydrocortisone 10 mg PO BID 03/06/20 08/14/20 Ipratropium [Atrovent] 1 puffs INH Q6H 03/06/20 08/07/22 Lamotrigine [Lamotrigine ER] 200 mg PO DAILY 03/06/20 08/07/22 Meloxicam 15 mg PO DAILY 03/06/20 08/14/20 Pantoprazole [Protonix] 40 mg PO DAILY 03/06/20 08/14/20 Prazosin HCl 5 mg PO DAILY 03/06/20 08/07/22 Sucralfate 1 gm PO ACHS 03/06/20 08/14/20 Trazodone HCl 100 mg PO HS 03/06/20 08/07/22 Venlafaxine HCl [Effexor Xr] 150 mg PO DAILY 03/06/20 08/07/22 Verapamil HCl [Verapamil ER] 120 mg PO DAILY 03/06/20 08/07/22 risperiDONE [Risperdal] 0.5 mg PO DAILY 03/06/20 08/14/20 HYDROcod/ACETAM 5/325 [[place] 5/325] 1 - 2 tab PO Q6H PRN #15 tablet 06/28/22 Amox/Clav 875/125 [Augmentin] 1 tab PO Q12H #20 tablet 08/07/22 Azithromycin [Zithromax] 250 mg PO DAILY #4 tablet 05/03/23 predniSONE [Deltasone] 40 mg PO DAILY 4 Days #8 tablet 05/03/23 - Allergies Allergies/Adverse Reactions: Allergies Allergy/AdvReac Type Severity Reaction Status Date / Time bee venom protein (honey bee) Allergy Unknown Verified 05/02/23 17:22 pregabalin [From Lyrica] AdvReac Hallucinati Verified 05/02/23 17:22 ons - Social History Does the pt smoke?: No Smoking Status: Never smoker Does the pt drink ETOH?: Yes Does the pt have substance abuse?: No - Immunizations Immunizations are current?: Yes Immunizations: Other immun not current - POLST Patient has POLST: No POLST Status: NO blood products due to anabaptist. PD ED PE NORMAL - Vitals Vital signs reviewed: Yes - General General: Alert and oriented X 3, No acute distress, Well developed/nourished, Other (morbidly obese female in NAD for much of H+P but does have frequent coughing spells) - HEENT HEENT: Atraumatic, PERRL, EOMI, Moist mucous membranes - Neck Neck: Supple, no meningeal sign - Cardiac Cardiac: RRR, No murmur - Respiratory Respiratory: No respiratory distress, Other (trace end-expiratory wheezing bi laterally) - Abdomen Abdomen: Soft, Non tender - Derm Derm: Normal color, Warm and dry PD ED PE EXPANDED - Extremities Extremities: Tenderness (left hip, left shoulder), Limited ROM (left hip, left shoulder). No: Deformity, Swelling, Bruising, Abrasion Results - Vitals Vitals: Oxygen O2 Source Room air Oxygen Flow Rate 2 - Labs Labs: Laboratory Tests 05/02/23 05/02/23 05/02/23 19:45 19:45 20:30 WBC 9.1 RBC 4.54 Hgb 12.8 Hct 40.7 MCV 89.6 MCH 28.2 MCHC 31.4 L RDW 16.3 H Plt Count 265 MPV 8.1 Neut # (Auto) 5.2 Lymph # (Auto) 2.9 [place] # (Auto) 0.7 Eos # (Auto) 0.3 Baso # (Auto) 0.0 Absolute Nucleated RBC 0.00 Nucleated RBC % 0.0 Sodium 137 Potassium 4.1 Chloride 98 L Carbon Dioxide 34 H Anion Gap 5.0 L BUN 15 Creatinine 1.1 Estimated GFR (MDRD) 49 L Glucose 114 H Calcium 9.2 Total Bilirubin 0.4 AST 25 ALT 32 Alkaline Phosphatase 138 H Total Protein 7.0 Albumin 3.9 Globulin 3.1 Albumin/Globulin Ratio 1.3 Lipase 24 Nasal Adenovirus (PCR) NOT DETECTED Nasal B. parapertussis DNA (PCR) NOT DETECTED Nasal Coronavir 229E PCR NOT DETECTED Nasal Coronavir HKU1 PCR NOT DETECTED Nasal Coronavir NL63 PCR NOT DETECTED Nasal Coronavir OC43 PCR NOT DETECTED Nasal Enterovir/Rhinovir PCR NOT DETECTED Nasal Influenza B PCR NOT DETECTED Nasal Influenza A PCR NOT DETECTED Nasal Parainfluen 1 PCR NOT DETECTED Nasal Parainfluen 2 PCR NOT DETECTED Nasal Parainfluen 3 PCR NOT DETECTED Nasal Parainfluen 4 PCR NOT DETECTED Nasal RSV (PCR) NOT DETECTED Nasal B.pertussis DNA PCR NOT DETECTED Nasal C.pneumoniae (PCR) NOT DETECTED Anton Human Metapneumo PCR NOT DETECTED Nasal M.pneumoniae (PCR) NOT DETECTED Nasal SARS-CoV-2 (PCR) NOT DETECTED - Rads (name of study) chest xray Relevant Findings:: Prelim report reviewed, See rad report CTH Relevant Findings:: Prelim report reviewed, See rad report hip/pelvis xray Relevant Findings:: Prelim report reviewed, See rad report left shoulder xrays Relevant Findings:: Prelim report reviewed, See rad report PD Medical Decision Making - ED course Complexity details: reviewed results, re-evaluated patient, considered differential, d/w patient ED course: No remarkable, concerning, nor diagnostic findings on tonight's blood tests. CBC is normal. ER abdominal panel has no significant abnormalities. Respiratory PCR panel is negative for the viruses tested. Left hip x-rays are unremarkable on my interpretation/review: no evidence of hip fracture nor dislocation. I reviewed the left shoulder x-rays, as well, and my interpretation is: No evidence of acute injury including no evidence of fracture or dislocation. Although the chest x-ray is read as no acute disease, there is significant shadowing due to her large body habitus which reduces confidence in this reading. Considering her frequent, wet cough during ED stay and in the setting of underlying asthma with current asthma exacerbation, she was given 500 mg p.o. Zithromax and a prescription for 4 days of 250 mg daily Zithromax was provided. I instructed her to stop the Augmentin that she has been taking for 4 days, as it is obviously not having any beneficial effect at this point. 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 In addition, I gave patient 40 mg p.o. prednisone for her asthma exacerbation and I am providing prescription for a short course of daily prednisone, as well. She was also given a DuoNeb during ED stay as well as 2 albuterol nebs. These measures resulted in decreased wheezing and improved aeration on reexamination prior to discharge. Results reviewed with patient, return precautions discussed. Advised her to contact her primary care provider to arrange for next available appointment for reevaluation. Departure - Departure Disposition: 01 Home, Self Care Clinical Impression: Asthma Condition: Good Instructions: ED Reactive Airway Disease Follow-Up: Vignesh Silver MD [Primary Care Provider] - (2-3 DAYS ) Prescriptions: predniSONE [Deltasone] 40 mg PO DAILY 4 Days #8 tablet Azithromycin [Zithromax] 250 mg PO DAILY #4 tablet Comments: Although there is no evidence of pneumonia on the chest x-ray, it is a limited study (there is a lot of shadowing on the x-ray so it is not read with great confidence as a normal chest x-ray). I am also considering your recurrent coughing throughout your ER stay which sounds productive/wet, which would be consistent with a respiratory tract infection in addition to an asthma exacer bation. Thus, as we discussed, I recommend you stop taking the antibiotic you are currently on (Augmentin) and I am putting you on a different antibiotic (azithromycin), the first dose of which were given in the emergency department. You are also given a dose of prednisone (steroid) in the ER for asthma exacerbation, and I am prescribing 4 days of both the antibiotic and the prednisone. Prescriptions for these medications have been electronically submitted to the [facility] in [place]. Contact your primary care provider in the morning when the office opens to arrange for next available appointment for reevaluation. Forms: PCP List Discharge Date/Time: 05/03/23 01:35
[2023-05-02] MEDS ORDERED: HYDROCORTISONE SUCCINATE 100 MG/2 ML VIAL IVP STA (19:32)
[2023-05-02 19:53] LABS: BASOPHILS % (AUTO) 0.3 %; EOSINOPHILS # (AUTO) 0.3 10^3/uL (0.0-0.7); EOSINOPHILS % (AUTO) 2.7 %; HCT - HEMATOCRIT 40.7 % (37.0-47.0); HGB - HEMOGLOBIN 12.8 g/dL (12.0-16.0); LYMPHOCYTES # (AUTO) 2.9 10^3/uL (1.5-3.5); LYMPHOCYTES % (AUTO) 31.9 %; MEAN CORPUSCULAR HEMOGLOBIN 28.2 pg (27.0-31.0); MEAN CORPUSCULAR HGB CONC 31.4 g/dL (32.0-36.0); MEAN CORPUSCULAR VOLUME 89.6 fL (81.0-99.0); MEAN PLATELET VOLUME 8.1 fL (7.9-10.8); MONOCYTES # (AUTO) 0.7 10^3/uL (0.0-1.0); MONOCYTES % (AUTO) 7.2 %; NEUTROPHILS # (AUTO) 5.2 10^3/uL (1.5-6.6); NEUTROPHILS % (AUTO) 57.2 %; PLT - PLATELET COUNT 265 10^3/uL (130-450); RED BLOOD COUNT 4.54 10^6/uL (4.20-5.40); RED CELL DISTRIBUTION WIDTH 16.3 % (12.0-15.0); WHITE BLOOD COUNT 9.1 x10^3/uL (4.8-10.8)
[2023-05-02 20:11] LABS: ALBUMIN 3.9 g/dL (3.2-5.5); ALBUMIN/GLOBULIN RATIO 1.3 (1.0-2.2); BILIRUBIN,TOTAL 0.4 mg/dL (0.2-1.0); CALCIUM 9.2 mg/dL (8.5-10.3); CREATININE 1.1 mg/dL (0.6-1.3); POTASSIUM 4.1 mmol/L (3.5-4.5)
[2023-05-02 21:41] LABS: B. PARAPERTUSSIS- RESP PCR PAN NOT DETECTED; B. PERTUSSIS- RESP PCR PANEL NOT DETECTED; C. PNEUMONIAE- RESP PCR PANEL NOT DETECTED; CORONAVIRUS 229E-RESP PCR NOT DETECTED; CORONAVIRUS HKU1-RESP PCR NOT DETECTED; CORONAVIRUS NL63-RESP PCR NOT DETECTED; CORONAVIRUS OC43-RESP PCR NOT DETECTED; HUMAN METAPNEUMOVIRUS NOT DETECTED; INFLUENZA A- RESP PCR PANEL NOT DETECTED; INFLUENZA B - RESP PCR PANEL NOT DETECTED; M. PNEUMONIAE- RESP PCR PANEL NOT DETECTED; PARAINFLUENZA VIRUS 1 NOT DETECTED; PARAINFLUENZA VIRUS 2 NOT DETECTED; PARAINFLUENZA VIRUS 3 NOT DETECTED; PARAINFLUENZA VIRUS 4 NOT DETECTED; RHINOVIRUS/ENTEROVIRUS NOT DETECTED; RSV- RESP PCR PANEL NOT DETECTED; SARS-CoV-2 -RESP PCR PANEL NOT DETECTED
--- NOTE | 2023-05-02 21:45 | XRAY Report ---
PROCEDURE: Chest 2 View X-Ray INDICATIONS: cough, dyspnea TECHNIQUE: 2 views of the chest were acquired. COMPARISON: 08/07/2022. FINDINGS: Surgical changes and devices: None. Lungs and pleura: No pleural effusions or pneumothorax. Lungs are clear. Mediastinum: Mediastinal contours appear normal. Heart size is enlarged. Bones and chest wall: No suspicious bony lesions. Overlying soft tissues appear unremarkable. IMPRESSION: No acute cardiopulmonary process. Reviewed by: Fransico Bryant MD on 05/02/2023 9:43 PM PST Approved by: Fransico Bryant MD on 05/02/2023 9:43 PM PST Station ID: [id number]
--- NOTE | 2023-05-02 21:46 | XRAY Report ---
PROCEDURE: Hip w/Pelvis 2-3V LT INDICATIONS: fall, pain/tenderness left hip, limited ROM TECHNIQUE: AP pelvis with lateral view(s) of the left hip(s). COMPARISON: None. FINDINGS: Bones: No fractures or dislocations. Bilateral hip joint osteoarthritic changes are seen. No evidenc e of avascular necrosis of femoral head. No suspicious bony lesions. Soft tissues: No suspicious soft tissue calcifications or masses. IMPRESSION: No gross acute left hip fracture or dislocation. Reviewed by: Fransico Bryant MD on 05/02/2023 9:44 PM PST Approved by: Fransico Bryant MD on 05/02/2023 9:44 PM PST Station ID: [id number]
--- NOTE | 2023-05-02 21:47 | XRAY Report ---
PROCEDURE: Shoulder 3 View LT INDICATIONS: fall, tenderness, limited ROM TECHNIQUE: 3 views of the shoulder were acquired. COMPARISON: None. FINDINGS: Bones: No fractures or dislocations. Moderate acromioclavicular joint and glenohumeral joint osteoph ytic changes are seen. No suspicious bony lesions. Visualized ribs appear intact. Soft tissues: No suspicious soft tissue calcifications. The visualized lungs are within normal limi ts. IMPRESSION: No gross acute left shoulder fracture or dislocation. Moderate left shoulder joint osteoarthritis. Reviewed by: Fransico Bryant MD on 05/02/2023 9:45 PM PST Approved by: Fransico Bryant MD on 05/02/2023 9:45 PM PST Station ID: [id number]
--- NOTE | 2023-05-02 22:48 | CT Report ---
PROCEDURE: HEAD WO INDICATIONS: head injury, headache, hallucinations TECHNIQUE: Noncontrast 4.5 mm thick angled axial sections acquired from the foramen magnum to the vertex. For r adiation dose reduction, the following was used: automated exposure control, adjustment of mA and/or kV according to patient size. COMPARISON: 08/11/2022 FINDINGS: Image quality: Excellent. CSF spaces: Basal cisterns are patent. No extra-axial fluid collections. The ventricles are symmet cheyanne in size and shape. Brain: No intracranial bleeds or masses. There is cerebral volume loss for age, with resultant vent ricular and sulcal prominence. There are periventricular and deep white matter chronic small vessel ischemic changes. There is intracranial internal carotid artery atherosclerosis. Skull and face: Calvarium and visualized facial bones appear intact, without suspicious lesions. Sinuses: Visualized sinuses and mastoids are clear. IMPRESSION: 1. No acute intracranial abnormalities. No significant changes from previous study. 2. No acute skull fracture. Reviewed by: Fransico Bryant MD on 05/02/2023 10:46 PM [facility] Approved by: Fransico Bryant MD on 05/02/2023 10:46 PM PST Station ID: [id number]
[2023-05-02] MEDS ORDERED: IPRATROPIUM/ALBUTEROL 3 ML NEB INH STA (22:55)
[2023-05-03 00:11] VITALS: BP 142/59; O2SAT 94
[2023-05-03] MEDS ORDERED: ALBUTEROL NEB 2.5 MG/3 ML INH STA (00:29)
[2023-05-03] MEDS ORDERED: predniSONE 20 MG TABLET PO STA (00:29)
[2023-05-03] MEDS ORDERED: AZITHROMYCIN 250 MG TABLET PO STA (00:30)
== END 2023-05-03 01:35 | disposition home or self-care (01) ==
LOC: ED 16:49
DX: J45.909 Unspecified asthma, uncomplicated (principal); R05.9 Cough, unspecified; I10 Essential (primary) hypertension; Z20.822 Contact with and (suspected) exposure to COVID-19
CPT/HCPCS: 36415; 70450; 71046; 73030; 73502; 80053; 83690; 85025; 87633; 94640; 94664; 96374; 99284; A9270; J7512

== ENCOUNTER 2023-10-15 10:30 | Outpatient (CLI) | payer MEDICARE, MEDICAID ==
[2023-10-15 18:51] LABS: CALCIUM 9.8 mg/dL (8.5-10.3); CREATININE 1.1 mg/dL (0.6-1.3); POTASSIUM 3.5 mmol/L (3.5-4.5)
[2023-10-15 18:53] LABS: ESTIMATED AVERAGE GLUCOSE 140 mg/dL (70-100); HEMOGLOBIN A1c% 6.5 % (4.27-6.07)
[2023-10-15 18:57] LABS: THYROID STIMULATING HORMONE 2.98 uIU/mL (0.34-5.60)
== END 2023-10-15 10:31 | disposition home or self-care (01) ==
LOC: LAB.N 10:30
PROVIDERS: ATTEND Physician Assistant
DX: R73.03 Prediabetes (principal); E03.9 Hypothyroidism, unspecified
CPT/HCPCS: 36415; 80048; 83036; 84443

== ENCOUNTER 2023-11-08 18:22 | Outpatient (CLI) | payer MEDICARE, MEDICAID | END 2023-11-08 18:23 | disposition EMS.NT | LOC: EMS 18:22 | DX: Z03.89 Encounter for observation for other suspected diseases and conditions ruled out (principal) ==

== ENCOUNTER 2024-01-29 21:49 | Outpatient (CLI) | payer MEDICARE, MEDICAID | END 2024-01-29 21:50 | disposition EMS.NT | LOC: EMS 21:49 | DX: Z03.89 Encounter for observation for other suspected diseases and conditions ruled out (principal) ==